=== PATIENT | male | born 1935 | race Hispanic/Latino ===

== ENCOUNTER → 2017-12-14 | Day surgery (SDC) | payer MEDICARE, OTHER ==
[2017-12-12 08:44] LABS: BASOPHILS % 0.3 % (0.0-1.0); EOSINOPHILS # (AUTO) 0.1 (0.0-0.4); EOSINOPHILS % 0.8 % (0.0-6.0); HEMATOCRIT 31.6 % (38.2-49.6); HEMOGLOBIN 10.2 g/dL (14.0-18.0); LYMPHOCYTES # (AUTO) 2.9 (1.0-3.2); LYMPHOCYTES % 46.7 % (18.0-39.1); MEAN CORPUSCULAR HEMOGLOBIN 35.7 pg (28-32); MEAN CORPUSCULAR HGB CONC 32.3 g/dL (31-35); MEAN CORPUSCULAR VOLUME 110.5 fL (81-99); MONOCYTES # (AUTO) 0.6 (0.2-0.8); MONOCYTES % 9.4 % (4.4-11.3); NEUTROPHILS # (AUTO) 2.6 (2.1-6.9); NEUTROPHILS % 42.6 % (38.7-80.0); PLATELET COUNT 147 x10e3/uL (140-360); RED BLOOD COUNT 2.86 x10e6/uL (4.3-5.7); RED CELL DISTRIBUTION WIDTH 14.7 % (11.7-14.4)
--- NOTE | 2017-12-12 09:07 | Diagnostic Imaging Report ---
PROCEDURE: X-RAY CHEST, TWO VIEWS COMPARISON: None. INDICATIONS: PREOPERATIVE CHEST XRAY FOR KIDNEY STONE SURGERY FINDINGS: Lungs are well-inflated. No focal consolidation, pleural effusion, or pneumothorax. Left apical fibrocalcific scar. Diffuse mild prominence of the pulmonary interstitium. Convexity of the left paraspinal region of the mediastinum likely reflects a hiatal hernia. Otherwise normal cardiomediastinal contour with tortuosity of the thoracic aorta. No acute osseous abnormality. CONCLUSION: No acute cardiopulmonary abnormality. 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 Dictated by: Jan Rosas M.D. on 12/12/2017 at 9:07 Electronically approved by: Jan Rosas M.D. on 12/12/2017 at 9:07
[2017-12-12 09:11] LABS: ANION GAP 14.8 mmol/L (8-16); CREATININE, SERUM 2.02 mg/dL (0.72-1.25); POTASSIUM 5.8 mmol/L (3.5-5.1)
[~2017-12-14] MED LIST: BELLADONNA/OPIUM 60 MG SUPP PR ONE; CEFTRIAXONE SOD 1 GM VIAL ONE; DEXAMETHASONE SOD PHOS INJ 4 MG/ML VIAL ONE; EPHEDRINE SULFATE INJ 50 MG/10 ML SYR ONE; FENOFIBRATE145 MG PO; FENTANYL CITRATE/PF 100MCG/2 ML INJ ONE; FUROSEMIDE40 MG PO; GLIPIZIDE5 MG PO; IOPAMIDOL 610MG/1ML 300 MG/ML VIAL IV ONE; ISOFLURANE INHAL SOLN 250 ML BTL INH ONE; LEVOTHYROXINE50 MCG PO; LIDOCAINE HCL 2% LOCAL INJ 5 ML SDV VIAL INJ ONE; LISINOPRIL10 MG PO; METFORMIN HCL500 MG PO; ONDANSETRON HCL INJ 2 MG/ML VIAL ONE; POTASSIUM CHLO10 ME1 PO; PRAVASTATIN SOD40 MG PO; PROPOFOL IV EMULSION 10 MG/ML 20 ML VIAL ONE; RENAGEL800 MG PO; SODIUM BICARBO650 MG PO; SODIUM POL15 GM/60 M; TAMSULOSIN HCL0.4 MG
--- OUTSIDE RECORDS SUMMARY | 2017-12-14 08:15 | XMS REPORT ---
Author [facility] Address Unknown Phone Unavailable Care Team Providers Care Finish Mender Name Role Phone GADIEL HAN Unavailable Unavailable Problems This patient has no known problems. Allergies, Adverse Reactions, Alerts This patient has no known allergies or adverse reactions. Medications This patient has no known medications. Results Test Description Test Time Test Comments Text Results Atomic Results Result Comments CHEST 2 VIEWS [place] [address] Patient Name: PAPA CORTEZ MR #: [id number] : 1935 Age/Sex: 82/M Req #: [id number] Adm Physician: Ordered by: GADIEL HAN MD Report #: [id number] Location: OR Room/Bed: Procedure: [id number] DX/ CHEST 2 VIEWS Exam Date: 12/12/17 Exam Time: 0850 REPORT STATUS: Signed PROCEDURE: X-RAY CHEST, TWO VIEWS COMPARISON: None. INDICATIONS: PREOPERATIVE CHEST XRAY FOR KIDNEY STONE SURGERY FINDINGS: Lungs are well-inflated. No focal consolidation, pleural effusion, or pneumothorax. Left apical fibrocalcific scar. Diffuse mild prominence of the pulmonary interstitium. Convexity of the left paraspinal region of the mediastinum likely reflects a hiatal hernia. Otherwise normal cardiomediastinal contour with tortuosity of the thoracic aorta. No acute osseous abnormality. CONCLUSION: No acute cardiopulmonary abnormality. 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 Dictated by: Anirudh Wright M.D. on 12/12/2017 at 9:07 Electronically approved by: Anirudh Wright M.D. on 12/12/2017 at 9:07 Dictated By: ANIRUDH WRIGHT MD 6 Transcribed By: JACKELINE on 12/12/17906 COPY TO: GADIEL HAN MD
--- NOTE | 2018-02-17 10:09 | Operative Report ---
DATE OF PROCEDURE: December 14, 2017 PREOPERATIVE DIAGNOSES 1. Bladder stone. 2. Obstructive BPH. POSTOPERATIVE DIAGNOSES 1. Bladder stone. 2. Obstructive BPH. OPERATIONS PERFORMED 1. Cystourethroscopy with bilateral ureteral catheterization and retrograde ureteropyelography. 2. Interpretation retrograde pyelography. 3. Supervision of fluoroscopy. No radiologist present. ANESTHESIA: General. COMPLICATIONS: None. CLINICAL SUMMARY: Konrad Tran is an 82-year-old man who is known to have a bladder stone by CT. The patient is brought to the OR to manage his stone. He has got obstructing BPH as well. He is aware of the risks of bleeding, infection, injury to adjacent structures, need for additional procedures, and elected to proceed. OPERATIVE PROCEDURE IN DETAIL: He was taken to the operating room and was placed on the cystoscopy table in the supine position. Anesthesia was uneventfully begun. The patient was then carefully and gently repositioned in the dorsal lithotomy position with all pressure points well-padded. His genitalia were prepared and draped in the usual sterile fashion. A 22.5-Gibraltarian cystoscope sheath with visual obturator in place was atraumatically inserted in the patient's urethra. It was guided down an unremarkable the urethra past a normal sphincteric region through the prostate bed, which was significant for visual obstructing bilobar BPH with kissing lateral lobes. Panendoscopy of the urinary bladder revealed heavy trabeculations with some cellular formations. There were no suspicious lesions and there were no stones. We performed careful panendoscopy on 3 occasions, and we could not find any sign of any stone. With the , retrograde ureteropyelograms were performed. Interpretation of retrograde ureteropyelography. Contrast was instilled in a retrograde fashion bilaterally. There were no tumors. No stones and 1 diverticulum. Unobstructed drainage was observed bilaterally fluoroscopically. The patient's bladder was then drained. The cystoscope was withdrawn. The patient was uneventfully reversed from anesthesia and taken to the recovery room in stable condition. Explicit postoperative instructions were given. Will follow the patient up in the office. Job#: [id number] RI cc:EMMA LEWIS
== END | disposition home or self-care (01) ==
LOC: OR 08:13
PROVIDERS: ATTEND Urology
DX: N21.0 Calculus in bladder (principal); N40.1 Benign prostatic hyperplasia with lower urinary tract symptoms; R35.1 Nocturia; N32.89 Other specified disorders of bladder; N47.6 Balanoposthitis; I10 Essential (primary) hypertension; I45.10 Unspecified right bundle-branch block; E11.9 Type 2 diabetes mellitus without complications; R60.0 Localized edema; Z01.810 Encounter for preprocedural cardiovascular examination; Z01.812 Encounter for preprocedural laboratory examination; Z01.818 Encounter for other preprocedural examination; Z87.891 Personal history of nicotine dependence
CPT/HCPCS: 36415 ×2; 52005; 71046; 74420; 80048; 82948; 84132; 85025; 93005; C1758; J0696; J1100; J2001; J2405; Q9967

== ENCOUNTER → 2018-01-16 | Day surgery (SDC) | payer MEDICARE ==
[2018-01-14 11:04] LABS: BASOPHILS % 0.6 % (0.0-1.0); EOSINOPHILS # (AUTO) 0.1 (0.0-0.4); EOSINOPHILS % 1.3 % (0.0-6.0); HEMATOCRIT 23.9 % (38.2-49.6); HEMOGLOBIN 8.3 g/dL (14.0-18.0); LYMPHOCYTES % 31.9 % (18.0-39.1); MEAN CORPUSCULAR HEMOGLOBIN 35.9 pg (28-32); MEAN CORPUSCULAR HGB CONC 34.7 g/dL (31-35); MEAN CORPUSCULAR VOLUME 103.5 fL (81-99); MONOCYTES # (AUTO) 0.8 (0.2-0.8); MONOCYTES % 12.7 % (4.4-11.3); NEUTROPHILS # (AUTO) 3.3 (2.1-6.9); NEUTROPHILS % 53.3 % (38.7-80.0); PLATELET COUNT 128 x10e3/uL (140-360); RED BLOOD COUNT 2.31 x10e6/uL (4.3-5.7); RED CELL DISTRIBUTION WIDTH 12.8 % (11.7-14.4)
[2018-01-14 11:15] LABS: INR 1.72; PROTHROMBIN TIME 18.9 seconds (11.9-14.5)
[2018-01-14 11:16] LABS: PARTIAL THROMBOPLASTIN TIME 39.4 seconds (23.8-35.5)
[2018-01-14 11:22] LABS: ALBUMIN 2.4 g/dL (3.5-5.0); ALBUMIN/GLOBULIN RATIO 0.8 (0.8-2.0); ANION GAP 17.1 mmol/L (8-16); CALCIUM 7.8 mg/dL (8.4-10.2); CREATININE, SERUM 5.52 mg/dL (0.72-1.25); POTASSIUM 4.1 mmol/L (3.5-5.1)
--- NOTE | 2018-01-14 12:01 | Diagnostic Imaging Report ---
PROCEDURE: Frontal and lateral views of the chest. COMPARISON: Chest 2 views 12/12/2017. INDICATIONS: PREOPERATIVE CHEST XRAY FOR LEFT ARM SURGERY FINDINGS: Lines/tubes: None. Lungs: The lungs are well inflated and clear. There is no evidence of pneumonia or pulmonary edema. Stable scarring in the bilateral upper lobes. Pleura: There is no pleural effusion or pneumothorax. Heart and mediastinum: The heart and the mediastinum are normal. Bones: No acute bony abnormality. Degenerative changes of the thoracic spine. IMPRESSION: No acute radiographic abnormality. Dictated by: Gerardo Cole M.D. on 01/14/2018 at 12:02 Electronically approved by: Gerardo Cole M.D. on 01/14/2018 at 12:02
[~2018-01-16] MED LIST changes: -BELLADONNA/OPIUM 60 MG SUPP PR ONE; +CEFAZOLIN SOD 1 GM VIAL ONE; -CEFTRIAXONE SOD 1 GM VIAL ONE; -DEXAMETHASONE SOD PHOS INJ 4 MG/ML VIAL ONE; -EPHEDRINE SULFATE INJ 50 MG/10 ML SYR ONE; +HEPARIN SOD (PORCINE) 5,000 UNIT/ML VIAL ONE; -IOPAMIDOL 610MG/1ML 300 MG/ML VIAL IV ONE; -ISOFLURANE INHAL SOLN 250 ML BTL INH ONE; +LIDOCAINE 2% /EPINEPHRINE 20 ML SDV INJ ONE; +LIDOCAINE HCL 1% LOCAL INJ 20 ML VIAL ONE; -LIDOCAINE HCL 2% LOCAL INJ 5 ML SDV VIAL INJ ONE; +MIDAZOLAM HCL 2 MG/2 ML VIAL ONE; -ONDANSETRON HCL INJ 2 MG/ML VIAL ONE; -PROPOFOL IV EMULSION 10 MG/ML 20 ML VIAL ONE; +PROTAMINE SULFATE 10 MG/ML 5 ML VIAL ONE; +ROPIVACAINE 0.5% 5 MG/ML 30 ML SDV ONE; +SODIUM CHLORIDE 0.9% 100 ML 100 ML ONE; +SODIUM CHLORIDE 0.9% 500ML 500 ML ONE
--- OUTSIDE RECORDS SUMMARY | 2018-01-16 10:24 | XMS REPORT | Clinical Summary ---
Author Author [facility] Organization [facility] Address Unknown Phone Unavailable Care Team Providers Care Automotive Quality Manager Name Role Phone Diallo Brown MD PCP Allergies No Known Allergies Current Medications Prescription Sig. Disp. Refills Start End Date Status Date fenofibrate (LOFIBRA) 160 Take 160 mg by mouth Active MG tablet daily. levothyroxine (SYNTHROID, Take 50 mcg by mouth Active LEVOXYL) 50 mcg tablet every morning. pravastatin (PRAVACHOL) Take 40 mg by mouth every Active 40 MG tablet morning. tamsulosin (FLOMAX) 0.4 Take 0.4 mg by mouth Active mg capsule,extended every evening. release 24hr sevelamer (RENVELA) 800 Take 1 tablet (800 mg 90 tablet 0 01/05/20 02/04/20 Active mg tablet total) by mouth 3 (three) 18 18 times a day with meals for 30 days. furosemide (LASIX) 20 mg Take 1 tablet (20 mg 60 tablet 0 01/05/20 02/04/20 Active tablet total) by mouth 2 (two) 18 18 times a day for 30 days. sodium polystyrene Take 15 gm daily 450 g 0 01/05/20 Active (KAYEXALATE) powder 18 sodium bicarbonate 650 mg Take 2 tablets (1,300 mg 120 tablet 0 02/04/20 Active tablet total) by mouth 2 (two) 18 18 times a day for 30 days. furosemide (LASIX) 40 mg 11/29/19 12/29/19 Discontin tablet 18 18 ued tamsulosin (FLOMAX) 0.4 12/20/19 12/29/19 Discontin mg capsule,extended 18 18 ued release 24hr glipiZIDE (GLUCOTROL) 2.5 12/24/19 12/29/19 Discontin MG 24 hr tablet 18 18 ued metFORMIN (GLUCOPHAGE) 11/07/19 12/29/19 Discontin 1,000 mg tablet 18 18 ued fenofibrate (LOFIBRA) 160 12/20/19 12/29/19 Discontin MG tablet 18 18 ued spironolactone 12/25/19 12/29/19 Discontin (ALDACTONE) 50 MG tablet 18 18 ued levothyroxine (SYNTHROID, Take 50 mcg by mouth 12/29/19 Discontin LEVOXYL) 50 mcg tablet every morning. 18 ued pravastatin (PRAVACHOL) Take 40 mg by mouth 12/29/19 Discontin 40 MG tablet daily. 18 ued lisinopril Take 20 mg by mouth 12/29/19 Discontin (PRINIVIL,ZESTRIL) 20 mg daily. 18 ued tablet aspirin (ECOTRIN) 81 MG Take 81 mg by mouth 12/29/19 Discontin enteric coated tablet daily. 18 ued potassium chloride 11/29/19 12/29/19 Discontin (KLOR-CON) 10 MEQ CR 18 18 ued tablet PHENAZOPYRIDINE HCL (AZO Take by mouth. 12/29/19 Discontin ORAL) 18 ued XIFAXAN 550 mg tablet 12/28/19 12/29/19 Discontin 18 18 ued furosemide (LASIX) 40 mg Take 40 mg by mouth 01/09/20 Discontin tablet daily. 18 ued glipiZIDE (GLUCOTROL) 2.5 Take 2.5 mg by mouth 01/05/20 Discontin MG 24 hr tablet daily. 18 ued lisinopril Take 20 mg by mouth 01/05/20 Discontin (PRINIVIL,ZESTRIL) 20 mg daily. 18 ued tablet metFORMIN (GLUCOPHAGE) Take 1,000 mg by mouth 2 01/05/20 Discontin 1,000 mg tablet (two) times a day. 18 ued spironolactone Take 50 mg by mouth 01/05/20 Discontin (ALDACTONE) 50 MG tablet daily. 18 ued sodium bicarbonate 650 mg Take 2 tablets (1,300 mg 60 tablet 0 01/05/20 Discontin tablet total) by mouth 2 (two) 18 18 ued times a day for 30 days. ciprofloxacin HCl (CIPRO) Take 1 tablet (250 mg 14 tablet 0 01/05/20 01/12/20 250 MG tablet total) by mouth 2 (two) 18 18 times a day for 7 days. Active Problems Problem Noted Date Hyperkalemia 12/28/2017 Encounters Date Type Specialty Care Team Description 01/04/2018 Patient Quality Ainsley Ruffin Outreach 01/01/2018 [facility] Radiology Jimmy Hanks MD Canceled ( Patient) Encounter 12/31/2017 Telephone Gastroenterology Jimmy Hanks MD 12/28/2017 [facility] General Internal Medicine Fátima Callahan MD SHERRELL (acute kidney injury) - Encounter Amy Garcia MD (Primary Dx); 01/04/2018 Acute hyperkalemia; Hypoglycemia; Dehydration; Edema, unspecified type; Hyperkalemia 12/28/2017 Telephone Gastroenterology Moira Correia MA 12/27/2017 Office Visit Gastroenterology Jimmy Hanks MD Abnormal LFTs (Primary Dx); Other ascites 12/27/2017 Orders Only Gastroenterology Jimmy Hanks MD after 01/15/2017 Social History Tobacco Use Types Packs/Day Years Used Date Never Smoker Smokeless Tobacco: Never Used Alcohol Use Drinks/Week oz/Week Comments No Sex Assigned at Date Recorded Not on file Last Filed Vital Signs Vital Sign Reading Time Taken Blood Pressure 119/59 01/04/2018 12:31 PM CUSTODY ASSISTANT Pulse 83 01/04/2018 12:31 PM CUSTODY ASSISTANT Temperature 36.2 C (97.1 F) 01/04/2018 12:31 PM CUSTODY ASSISTANT Respiratory Rate 20 01/04/2018 12:31 PM CUSTODY ASSISTANT Oxygen Saturation 99% 01/04/2018 12:31 PM CUSTODY ASSISTANT Inhaled Oxygen - - Concentration Weight 81.8 kg (180 lb 4.8 oz) 01/04/2018 4:03 AM CUSTODY ASSISTANT Height 167.6 cm (5' 6") 12/31/2017 6:43 PM CUSTODY ASSISTANT Body Mass Index 29.1 01/04/2018 4:03 AM CUSTODY ASSISTANT Plan of Treatment Health Maintenance Due Date Last Done Comments ZOSTER VACCINE 1997 PNEUMOCOCCAL 2002 POLYSACCHARIDE VACCINE AGE 65 AND OVER PNEUMOCOCCAL-13 2002 INFLUENZA VACCINE 05/29/2017 Procedures Procedure Name Priority Date/Time Associated Diagnosis Comments ECHOCARDIOGRAM 2D Routine 12/29/2017 Results for this COMPLETE W MMODE SPECTRAL 9:29 AM CUSTODY ASSISTANT procedure are in the COLOR DOPPLER (89779) results section. [place] [facility], E/M Routine 12/28/2017 Results for this 30-74 MINUTES 4:23 PM CUSTODY ASSISTANT procedure are in the results section. after 01/15/2017 Results * POC glucose (01/04/2018 12:26 PM) Only the most recent of 35 results within the time period is included. Component Value Ref Range POC glucose 142 (H) 65 - 99 mg/dL Comment: [facility] Notified RN Meter ID: [id number] Model Engine Mechanic: Joe Lisa Specimen Performing Laboratory [facility] DEPARTMENT OF PATHOLOGY AND GENOMIC MEDICINE [address] [place] [id number] * Prothrombin time with INR (01/04/2018 7:56 AM) Only the most recent of 7 results within the time period is included. Component Value Ref Range Prothrombin time 20.5 (H) 12.0 - 15.0 sec INR 1.7 Comment: The International Normalized Ratio (INR) is a therapeutic monitoring tool for patients who are stable on oral anticoagulant therapy. An INR of 2.0-3.0 is suggested for deep vein thrombosis/pulmonary embolism. Specimen Performing Laboratory Blood [facility] DEPARTMENT OF PATHOLOGY AND GENOMIC MEDICINE [address] [place] [id number] * CBC with platelet and differential (01/04/2018 7:56 AM) Only the most recent of 8 results within the time period is included. Component Value Ref Range WBC 5.16 4.50 - 11.00 k/uL RBC 2.62 (L) 4.40 - 6.00 m/uL HGB 9.2 (L) 14.0 - 18.0 g/dL HCT 27.9 (L) 41.0 - 51.0 % MCV 106.5 (H) 82.0 - 100.0 fL MCH 35.1 (H) 27.0 - 34.0 pg MCHC 33.0 31.0 - 37.0 g/dL RDW - SD 54.0 37.0 - 55.0 fL MPV 11.9 8.8 - 13.2 fL Platelet count 142 (L) 150 - 400 k/uL Nucleated RBC 0.00 /100 WBC Neutrophils 47.9 39.0 - 69.0 % Lymphocytes 36.8 25.0 - 45.0 % Monocytes 12.6 (H) 0.0 - 10.0 % Eosinophils 1.9 0.0 - 5.0 % Basophils 0.6 0.0 - 1.0 % Immature granulocytes 0.2Comment: "Immature granulocytes" 0.0 - 1.0 % (promyelocytes, myelocytes, metamyelocytes) Specimen Performing Laboratory Blood [facility] DEPARTMENT OF PATHOLOGY AND [facility] MEDICINE [address] [place] [address] * B natriuretic peptide (01/04/2018 7:56 AM) Only the most recent of 2 results within the time period is included. Component Value Ref Range BNP 287 (H) 0 - 100 pg/mL Specimen Performing Laboratory Blood [facility] DEPARTMENT OF PATHOLOGY AND [address] [address] * Estimated GFR (01/04/2018 4:00 AM) Only the most recent of 10 results within the time period is included. Component Value Ref Range GFR Non Af Amer 10 (A) mL/min/1.73 m2 GFR Af Amer 12 (A) mL/min/1.73 m2 Comment: Chronic kidney disease: <60 mL/min/1.73m2 Kidney failure: <15 mL/min/1.73m2 The estimated GFR is calculated from the IDMS-traceable Modification of Diet in Renal Disease Equation. The accuracy of the calculation is poor when the creatinine is normal. Calculated values >90 mL/min/1.73m2 are not reported. This equation has not been validated in children (<18 years), women, the elderly (>70 years), or ethnic groups other than Caucasians and Americans. Specimen Performing Laboratory Plasma specimen [facility] DEPARTMENT OF PATHOLOGY AND [address] [address] * Comprehensive metabolic panel (01/04/2018 4:00 AM) Only the most recent of 8 results within the time period is included. Component Value Ref Range Sodium 134 (L) 135 - 148 mEq/L Potassium 4.2 3.5 - 5.0 mEq/L Chloride 99 98 - 112 mEq/L CO2 17 (L) 24 - 31 mEq/L Anion gap 18 (H) 7 - 15 mEq/L Comment: Starting from January , anion gap calculation no longer incorporates potassium. Please note the change. BUN 58 (H) 8 - 23 mg/dL Creatinine 5.7 (H) 0.7 - 1.2 mg/dL Glucose 94 65 - 99 mg/dL Calcium 8.1 (L) 8.8 - 10.2 mg/dL Protein 5.8 (L) 6.3 - 8.3 g/dL Comment: 4.6-7.0 g/dL 1 week 4.4-7.6 g/dL 7 months-1year 5.1-7.3 g/dL 1-2 years 5.6-7.5 g/dL >3 years 6.0-8.0 g/dL 18-150 6.3-8.3 g/dL Albumin 2.4 (L) 3.5 - 5.0 g/dL A/G ratio 0.7 0.7 - 3.8 Alkaline phosphatase 87 40 - 129 U/L AST 88 (H) 10 - 50 U/L ALT 44 5 - 50 U/L Total bilirubin 1.1 0.0 - 1.2 mg/dL Specimen Performing Laboratory Plasma specimen [facility] DEPARTMENT OF PATHOLOGY AND GENOMIC MEDICINE [address] [place] [address] * Magnesium level (01/03/2018 4:49 AM) Only the most recent of 4 results within the time period is included. Component Value Ref Range Magnesium 2.5 (H) 1.6 - 2.4 mg/dL Specimen Performing Laboratory Plasma specimen [facility] DEPARTMENT OF PATHOLOGY AND GENOMIC MEDICINE [address] [place] [address] * Pv vein mapping upper extremity (01/02/2018 10:07 AM) Specimen Performing Laboratory [facility] [address] [place] [address] Narrative Vascular Ultrasound Laboratory Upper Extremity Vein Mapping Report [address] [place] [address] Pat.Name:KONRAD CORTEZ Pat.ID:[id number] .Date: 01/02/2018Refer.MD:AMY GARCIA MD Exam Time: 9:44:00 AMStudy Type:UE Vein Mapping DOBAge:1935,82YSex: MALE Sonogrphr: Stephenie Cruz RDCS, RVT Pat. Stat.:Inpatient Room:[address] TapeVol: ED, CPT - 4: G0365 Echo Event ID:[id number] Order ID:[id number] Reason for Study:Venous mapping for dialysis access History / Clinical:Cirrhosis, Portal HTN, SHERRELL, Gastric mass, DM, HTN, HLD Race:C SUMMARY: DUPLEX SCAN OBSERVATIONSUPPER ARTERY PRESSURES (mmHg) Right LeftRight Left IJNormal Normal Brachial____ ____ SubclavianNormal NormalRadial____ ____ AxillaryNormal NormalUlnar____ ____ BrachialNormal Normal BasilicNormal Normal Cephalic upper arm Normal Obstructed Cephalic forearm Normal Normal RIGHT:There is normal compressibility and no evidence of echogenic material noted within the lumen of the visualized veins. Colorflow and Doppler signals are normal. LEFT:The cephalic vein (upper arm and antecubital fossa portions) is non-compressible, and dilated with echogenic material noted within the lumen of the visualized vein. Colorflow and Doppler signals are absent. The remaining visualized veins are patent. PRELIMINARY FINDINGS 1. 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 2. See diagram for superficial vein measurements. 3. The palmar arch is complete; however, the amplitude is reduced uponrelease of the left radial artery during Connor'stest. PHYSICIAN INTERPRETATION Venous examination of the both upper extremities and neck demonstrated superficial venous thrombosis of the left cephalic vein (upper arm and antecubital fossa portions). See diagram for superficial vein measurements. The palmar arch is complete; butdecreased amplitude in the left radial artery during Connor test.(waveforms attached) Signed 01/02/2018 12:18 PM Marbin Castillo MD, RPVI Procedure Note Interface, Radiology Results In - 01/02/2018 12:19 PM [facility] Vascular Ultrasound Laboratory Upper Extremity Vein Mapping Report [id number] [address] [facility].Name: KONRAD CORTEZ.ID: [id number] .Date: 01/02/2018 Refer.MD: AMY GARCIA MD Exam Time: 9:44:00 AM Study Type:UE Vein Mapping Age: 7 1935,82Y Sex: MALE Sonogrphr: Stephenie Cruz, RDCS, RVT Pat. Stat.:Inpatient Room: [facility] A Tape Vol: ED, CPT - 4: G0365 Echo Event ID:[id number] Order ID: [id number] Reason for Study:Venous mapping for dialysis access History / Clinical:Cirrhosis, Portal HTN, SHERRELL, Gastric mass, DM, HTN, HLD Race: C SUMMARY: DUPLEX SCAN OBSERVATIONS UPPER ARTERY PRESSURES (mmHg) Right Left Right Left IJ Normal Normal Brachial ____ ____ Subclavian Normal Normal Radial ____ ____ Axillary Normal Normal Ulnar ____ ____ Brachial Normal Normal Basilic Normal Normal Cephalic upper arm Normal Obstructed Cephalic forearm Normal Normal RIGHT: There is normal compressibility and no evidence of echogenic material noted within the lumen of the visualized veins. Colorflow and Doppler signals are normal. LEFT: The cephalic vein (upper arm and antecubital fossa portions) is non-compressible, and dilated with echogenic material noted within the lumen of the visualized vein. Colorflow and Doppler signals are absent. The remaining visualized veins are patent. PRELIMINARY FINDINGS 1. 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 2. See diagram for superficial vein measurements. 3. The palmar arch is complete; however, the amplitude is reduced upon release of the left radial artery during Connor's test. PHYSICIAN INTERPRETATION Venous examination of the both upper extremities and neck demonstrated superficial venous thrombosis of the left cephalic vein (upper arm and antecubital fossa portions). See diagram for superficial vein measurements. The palmar arch is complete; but decreased amplitude in the left radial artery during Connor test.(waveforms attached) Signed 01/02/2018 12:18 PM Marbin Castillo MD, RPVI * Urine culture (01/01/2018 10:46 PM) Only the most recent of 2 results within the time period is included. Component Value Ref Range Urine culture SEE COMMENTComment: Bacteriuria screen negative. Specimen Performing Laboratory [facility] DEPARTMENT OF PATHOLOGY AND GENOMIC MEDICINE [address] [place] [address] * Urinalysis screen and microscopy, with reflex to culture (01/01/2018 10:20 PM) Only the most recent of 2 results within the time period is included. Component Value Ref Range Specimen site Catheterized Color, UA Straw Appearance, UA Clear Specific gravity, UA 1.005 1.001 - 1.035 pH, UA 5.0 5.0 - 8.5 Protein, UA Negative Negative Glucose, UA Negative Negative Ketones, UA Negative Negative Bilirubin, UA Negative Negative Blood, UA Moderate (A) Negative Nitrite, UA Negative Negative Urobilinogen, UA <2.0 <2.0 Leukocyte esterase, UA Negative Negative WBC, UA 1 0 - 1 /HPF RBC, UA 1 0 - 1 /HPF Bacteria, UA None seen None seen Yeast, UA None seen Yeast with pseudohyphae, None seen UA Specimen Performing Laboratory Urine [facility] DEPARTMENT OF PATHOLOGY AND GENOMIC MEDICINE [address] [place] [address] * US Abdominal Paracentesis Imaging (01/01/2018 12:30 PM) Specimen Performing Laboratory [facility] [address] [place] [address] Narrative EXAMINATION:US ABDOMINAL PARACENTESIS IMAGING CLINICAL HISTORY:Ascites COMPARISON:None. TECHNIQUE: The procedure's risks, benefits, and alternatives were discussed with the patient and written, informed consent was obtained. Using ultrasound guidance, a site for needle entry was selected and the overlying skin was prepped and draped in the usual sterile fashion. 1% buffered lidocaine was used for local anesthesia. A 5 Romanian Yueh catheter was inserted into the peritoneal cavity and 1.5 L of fluid drained from the right abdomen for therapeutic and diagnostic purposes.The patient tolerated the procedure without difficulty and was discharged to the radiology recovery area for monitoring prior to discharge. EBL: None. COMPLICATIONS: None. SPECIMENS: As above. ASSISTANTS: None. IMPRESSION: Uncomplicated ultrasound-guided paracentesis as above. [facility]-[id number] [address] [facility], Radiology Results Incoming - 01/01/2018 4:27 PM CUSTODY ASSISTANT EXAMINATION: US ABDOMINAL PARACENTESIS IMAGING CLINICAL HISTORY:Ascites COMPARISON:None. TECHNIQUE: The procedure's risks, benefits, and alternatives were discussed with the patient and written, informed consent was obtained. Using ultrasound guidance, a site for needle entry was selected and the overlying skin was prepped and draped in the usual sterile fashion. 1% buffered lidocaine was used for local anesthesia. A 5 Romanian Yueh catheter was inserted into the peritoneal cavity and 1.5 L of fluid drained from the right abdomen for therapeutic and diagnostic purposes. The patient tolerated the procedure without difficulty and was discharged to the radiology recovery area for monitoring prior to discharge. EBL: None. COMPLICATIONS: None. SPECIMENS: As above. ASSISTANTS: None. IMPRESSION: Uncomplicated ultrasound-guided paracentesis as above. [facility]-[id number] * Aerobic culture (01/01/2018 12:14 PM) Component Value Ref Range Aerobic culture isolate No growth after 3 days. Comment: Specimen Information Specimen Source: Peritoneal fluid Specimen Site: Ascites Specimen Performing Laboratory Peritoneal fluid - [facility] DEPARTMENT OF PATHOLOGY AND GENOMIC MEDICINE [facility] [address] [place] [address] * Gram stain (01/01/2018 12:14 PM) Only the most recent of 2 results within the time period is included. Component Value Ref Range Gram stain isolate Many WBC's No organisms seen Comment: Specimen Information Specimen Source: Peritoneal fluid Specimen Site: Ascites Specimen Performing Laboratory Peritoneal fluid - [facility] DEPARTMENT OF PATHOLOGY AND GENOMIC MEDICINE [facility] [address] [place] [address] * Anaerobic culture (01/01/2018 12:14 PM) Component Value Ref Range Anaerobic culture isolate No anaerobic organisms isolated. Comment: Specimen Information Specimen Source: Peritoneal fluid Specimen Site: Ascites Specimen Performing Laboratory Peritoneal fluid - [facility] DEPARTMENT OF PATHOLOGY AND GENOMIC MEDICINE [facility] [address] [place] [address] * Cell count and differential, body fluid (01/01/2018 12:14 PM) Component Value Ref Range Misc fluid type Ascitic Color, fluid Pale yellow Appearance, fluid Hazy RBC, fluid SEE COMMENTComment: 1+ (0 - 500 RBC/CMM) /CMM Nucleated cells, fluid 361 /CMM Fluid mononuclear cell See Diff Neutrophils, fluid 7 % Lymphocytes, fluid 25 % Mesothelial cells, fluid 7 % Macrophages, fluid 61 % Specimen Performing Laboratory Fluid [facility] DEPARTMENT OF PATHOLOGY AND GENOMIC MEDICINE [address] [place] [address] * Protein, misc fluid (01/01/2018 12:14 PM) Component Value Ref Range Fluid type Ascitic Protein, fluid 1.9 g/dL Comment: Analysis performed on Jennifer 8000 analyzer. This is not an approved methodology for this specimen type; accuracy and clinical significance uncertain. Specimen Performing Laboratory Fluid [facility] DEPARTMENT [place] [address] * Cytology (non-gynecological) request (01/01/2018 12:00 PM) Component Value Ref Range Cytology See link below for PDF Lab Report (non-gynecological) report Result status This is Final Report to [id number] Specimen Performing Laboratory [facility] DEPARTMENT OF PATHOLOGY AND [facility] MEDICINE [address] [place] [address] * Anti smooth muscle Ab screen (01/01/2018 4:53 AM) Component Value Ref Range Anti smooth muscle Ab Not Detected Not-Detected screen Specimen Performing Laboratory Blood [facility] [place] [address] Narrative _CO2 results called to and read back by EHSAN HOLLEY/MOHAN at01/01/201807:07by _GMV. * Liver-kidney microsome Ab, IgG (01/01/2018 4:53 AM) Component Value Ref Range Liver-kidney microsome <1:20 <1:20 Ab, IgG Comment: INTERPRETIVE INFORMATION: Kabrb-Yyaklz-Xdosjshrs Abs, IgG Liver-Kidney Microsome IgG antibody (anti-LKM), as detected by indirect immunofluorescent antibody (IFA) techniques, may be observed in patients with autoimmune hepatitis type 2 (AIH-2), AIH-2 associated with autoimmune bxifgsugjsadvnrkkr-tttodocwxdf-tdyhurikzu dystrophy (APECED), viral hepatitis C or D, and some forms of drug-induced hepatitis. This IFA does not differentiate among the four types of LKM antibodies (LKM-1, LKM-2, LKM-3, and a fourth type that recognizes CY and CY antigens). Of these, anti-LKM-1 (cytochrome [id number]) IgG antibodies are considered specific for AIH-2. Test developed and characteristics determined by [employer]. See Compliance Statement D: [employer] Performed by [employer], [address] [place] [id number] [email or web address] Jez Chaudhry MD - Lab. Director Specimen Performing Laboratory Serum [facility] [address] [address] Narrative _CO2 results called to and read back by EHSAN LY at01/01/201807:07by _GMV. * Anti mitochondria screen (01/01/2018 4:53 AM) Component Value Ref Range Anti mitochondria screen Not Detected Not-Detected Specimen Performing Laboratory Blood [facility] DEPARTMENT OF PATHOLOGY AND [facility] MEDICINE [address] [place] [address] Narrative _CO2 results called to and read back by EHSAN LY at01/01/201807:07by _GMV. * Ceruloplasmin level (01/01/2018 4:53 AM) Component Value Ref Range Ceruloplasmin 20 15 - 30 mg/dL Specimen Performing Laboratory Plasma specimen [facility] DEPARTMENT OF PATHOLOGY [facility] GENOMIC MEDICINE [address] [place] [address] * Alpha fetoprotein (01/01/2018 4:53 AM) Component Value Ref Range Alpha fetoprotein 2.7 0.0 - 8.3 ng/mL Comment: The Jnenifer 8000 AFP immunoassay was used. Results obtained with different assay methods or kits should not be used interchangeably and may be different. Specimen Performing Laboratory Serum [facility] DEPARTMENT OF PATHOLOGY [facility] GENOMIC MEDICINE [address] [place] [address] * RAMU (01/01/2018 4:53 AM) Component Value Ref Range RAMU screen Negative Negative Specimen Performing Laboratory Blood [facility] [place] [address] Narrative _CO2 results called to and read back by EHSAN LY at01/01/201807:07by _GMV. * Blood culture, aerobic & anaerobic (12/31/2017 6:53 PM) Only the most recent of 2 results within the time period is included. Component Value Ref Range Blood culture isolate No growth after 5 days of incubation. Comment: Specimen Information Specimen Source: Blood Specimen Site: Antecubital Specimen Performing Laboratory Blood - Antecubital [facility] OF PATHOLOGY [facility] [address] [place] [address] * Salmonella/shigella culture (12/31/2017 3:30 PM) Component Value Ref Range Salmonella/shigella No Aeromonas isolated culture isolate Comment: Specimen Information Specimen Source: Stool Specimen Site: Nonpreserved Specimen Performing Laboratory Stool - Nonpreserved [facility] OF PATHOLOGY [facility] [address] [place] [address] * Gastrointestinal panel (12/31/2017 3:30 PM) Component Value Ref Range Gastrointestinal panel Negative for all pathogens tested: Negative for Salmonella Negative for Campylobacter Negative for Diarrheagenic E coli/Shigella Negative for Shiga-like toxin-producing E coli Negative for Plesiomonas shigelloides Negative for Yersinia enterocolitica Negative for Vibrio species Negative for Clostridium difficile (Toxin A/B) Negative for Cryptosporidium Negative for Giardia lamblia Negative for Cyclospora cayeteanensis Negative for Entamoeba histolytica Negative for Adenovirus F 40/41 Negative for Astrovirus Negative for Norovirus GI/GII Negative for Rotavirus A Negative for Sapovirus Negative for Clostridium difficile toxin Negative for E coli 0157 This real-time PCR assay detects the presence of nucleic acids (RNA or DNA) for the gastrointestinal pathogens listed. A result of "Not-detected" does not exclude the possibility of the presence of one or more pathogens at concentrations less than the detectable limits of the assay. Comment: Specimen Information Specimen Source: Stool Specimen Site: Nonpreserved Specimen Performing Laboratory Stool - Nonpreserved [facility] DEPARTMENT OF PATHOLOGY AND NXT-ID MEDICINE [address] [place] [address] * CBC hemogram (12/31/2017 2:50 PM) Only the most recent of 3 results within the time period is included. Component Value Ref Range WBC 6.45 4.50 - 11.00 k/uL RBC 2.71 (L) 4.40 - 6.00 m/uL HGB 9.8 (L) 14.0 - 18.0 g/dL HCT 30.1 (L) 41.0 - 51.0 % MCV 111.1 (H) 82.0 - 100.0 fL MCH 36.2 (H) 27.0 - 34.0 pg MCHC 32.6 31.0 - 37.0 g/dL RDW - SD 58.6 (H) 37.0 - 55.0 fL MPV 11.2 8.8 - 13.2 fL Platelet count 165 150 - 400 k/uL Nucleated RBC 0.00 /100 WBC Specimen Performing Laboratory [facility] DEPARTMENT OF PATHOLOGY AND GENOMIC MEDICINE [address] [place] [address] * Phosphorus level (12/31/2017 4:00 AM) Only the most recent of 3 results within the time period is included. Component Value Ref Range Phosphorus 5.3 (H) 2.4 - 4.5 mg/dL Specimen Performing Laboratory Plasma specimen [facility] DEPARTMENT PATHOLOGY AND [address] [address] * Hepatic function panel (12/31/2017 4:00 AM) Component Value Ref Range Albumin 2.0 (L) 3.5 - 5.0 g/dL Total bilirubin 1.1 0.0 - 1.2 mg/dL Bilirubin direct 0.6 (H) 0.0 - 0.3 mg/dL Alkaline phosphatase 72 40 - 129 U/L Protein 5.0 (L) 6.3 - 8.3 g/dL Comment: Eros 4.6-7.0 g/dL 1 week 4.4-7.6 g/dL 7 months-1year 5.1-7.3 g/dL 1-2 years 5.6-7.5 g/dL >3 years 6.0-8.0 g/dL 18-150 6.3-8.3 g/dL ALT 36 5 - 50 U/L AST 72 (H) 10 - 50 U/L Specimen Performing Laboratory Plasma specimen [facility] DEPARTMENT OF PATHOLOGY AND [place] [id number] * Basic metabolic panel (12/31/2017 4:00 AM) Only the most recent of 3 results within the time period is included. Component Value Ref Range Sodium 133 (L) 135 - 148 mEq/L Potassium 5.2 (H) 3.5 - 5.0 mEq/L Chloride 103 98 - 112 mEq/L CO2 15 (L) 24 - 31 mEq/L Anion gap 15 7 - 15 mEq/L Comment: Starting from January , anion gap calculation no longer incorporates potassium. Please note the change. 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 Sagittal and coronal computerized reformatted images were also obtained. The lack of intravenous contrast reduces the sensitivity of detecting solid organ disease.Automatic exposure control or iterative reconstruction techniques used to reduce dose. COMPARISON:None. Impression: 1.Without IV contrast evaluation of solid organs of upper abdomen is limited. Liver show lobulated contours compatible with cirrhosis. There is small to moderate amount of ascites throughout. Spleen is mildly enlarged at 13.3 cm in length. 2.There is a 3.4 x 2.7 x 2.9 cm mass projecting along the serosal aspect of the gastric cardia. 3.Cholelithiasis is noted. Bowel gas pattern nonobstructive. Morganii hernia containing mainly fatty material and small amount of ascites. There is also a right-sided inguinal hernia containing small amount of fluid. Summary: 1.Gastric mass at the level of gastric cardia posterior wall. GIST tumor vs other neoplasm should be considered. Endoscopy recommended. [facility]-[id number] Procedure [address] [facility], Radiology Results - 12/30/2017 9:34 AM CUSTODY ASSISTANT EXAMINATION: CT ABDOMEN PELVIS WO CONTRAST CLINICAL HISTORY: BLADDER OUTLET OBSTRUCTION RENAL INSUFFICIENCY TECHNIQUE: Multiple axial images of the abdomen and pelvis were obtained without intravenous administration of iodinated contrast. Sagittal and coronal computerized reformatted images were also obtained. The lack of intravenous contrast reduces the sensitivity of detecting solid organ disease.Automatic exposure control or iterative reconstruction techniques used to reduce dose. COMPARISON: None. Impression: 1. Without IV contrast evaluation of solid organs of upper abdomen is limited. Liver show lobulated contours compatible with cirrhosis. There is small to moderate amount of ascites throughout. Spleen is mildly enlarged at 13.3 cm in length. 2. There is a 3.4 x 2.7 x 2.9 cm mass projecting along the serosal aspect of the gastric cardia. 3. Cholelithiasis is noted. Bowel gas pattern nonobstructive. Morganii hernia containing mainly fatty material and small amount of ascites. There is also a right-sided inguinal hernia containing small amount of fluid. Summary: 1. Gastric mass at the level of gastric cardia posterior wall. GIST tumor vs other neoplasm should be considered. Endoscopy recommended. [facility]-[id number] * Prostate specific antigen (12/30/2017 4:00 AM) Component Value Ref Range PSA 2.0 0.0 - 4.0 ng/mL Comment: The JENNIFER 8000 PSA immunoassay was used. Results obtained with different assay methods or kits should not be used interchangeably and may be different. Specimen Performing Laboratory Plasma specimen [facility] DEPARTMENT OF PATHOLOGY AND [facility] MEDICINE [address] [place] [address] * Sodium level, urine, random (12/29/2017 12:00 PM) Component Value Ref Range Sodium, urine, random 37 mEq/L Specimen Performing Laboratory Urine [facility] [address] * Creatinine level, urine, random (12/29/2017 12:00 PM) Component Value Ref Range Creatinine, urine, random 136 mg/dL Specimen Performing Laboratory Urine [facility] [address] * Echocardiogram complete w contrast and 3D if needed (12/29/2017 9:29 AM) [facility]imen [facility] [address] [place] [address] Narrative Echocardiography Report [address] [place] [address] Pat.Name:KONRAD CORTEZ.ID:[id number] .Date: 12/29/2017Refer.MD:AMY GARCIA MD Exam Time: 9:01:00 AMStudy Type:Routine Echo Height:65inWeight:176lb BSA: 1.88 m2 DOBAge:1935 ,82Y Sex: MALEBP: 99/56 HR:83 bpmSonogrphr: TIMOTHY Gillis, [facility] Pat. Stat.:Inpatient Room:[facility] Study Status:Final Echo Event ID:[id number] Order ID:[id number] Reason for Study:Congestive Heart Failure Procedures:2D Echo, Colorflow Doppler, Strain Race:C SUMMARY: Findings are consistent with HFpEF. FINDINGS: LV: LV size is normal. Concentric left ventricular remodeling. LVEF is normal. Overall wall motion is normal. Estimated EFis 60-64%. RV: RV size is normal. RV systolic function is normal. RV wall motionis normal. LA: LA size is normal. RA: RA size is normal. AO: Aortic root diameter is normal. HELLEN: No pericardial effusion. AV: Mild thickening and calcification of AV leaflets. A trace of aorticregurgitation. MV: No structural MV abnormalities noted. A trace of mitral regurgitation. PV: Pulmonic valve not well seen. TV: No structural TV abnormalities noted. A trace of tricuspid regurgitation Sandhu: LV relaxation is impaired. LV filling pressure is elevated. Other:Insufficient TR jet to estimate PA systolic pressure. Ascitesnoted. MEASUREMENTS: 2D Parasternal [place] Ao An1.9 cmLVPWd 1.1 cm LVOT 1.8 cmLA Ds 2.6 cm LVIDd3.8 cmIndex 2 cm/m Ao Rtd 2.6 cm Index1.4 cm/m LVIDs2.6 cm LV Ceic062.5 g(122-174) LV%fs 30.3 % LVM Index 62 g/m2 IVSd 0.9 cmRWT 0.6 Signed 12/29/2017 05:41 PM Sheron Holloway M.D. Procedure Note Interface, Radiology Results In - 12/29/2017 5:41 PM CUSTODY ASSISTANT Echocardiography Report [address]Name: KONRAD CORTEZ.ID: [id number] .Date: 12/29/2017 Refer.MD: AMY GARCIA MD Exam Time: 9:01:00 AM Study Type:Routine Echo Height: 65in Weight: 176lb BSA: 1.88 m2 Age: 7 1935,82Y Sex: MALE BP: 99/56 HR: 83 bpm Sonogrphr: TIMOTHY Gillis, [facility] Pat. Stat.:Inpatient Room: A838 Study Status:Final Echo Event ID:[id number] Order ID: [id number] Reason for Study:Congestive Heart Failure Procedures:2D Echo, Colorflow Doppler, Strain Race: C SUMMARY: Findings are consistent with HFpEF. FINDINGS: LV: LV size is normal. Concentric left ventricular remodeling. LV EF is normal. Overall wall motion is normal. Estimated EF is 60-64%. RV: RV size is normal. RV systolic function is normal. RV wall motion is normal. LA: LA size is normal. RA: RA size is normal. AO: Aortic root diameter is normal. HELLEN: No pericardial effusion. AV: Mild thickening and calcification of AV leaflets. A trace of aortic regurgitation. MV: No structural MV abnormalities noted. A trace of mitral regurgitation. PV: Pulmonic valve not well seen. TV: No structural TV abnormalities noted. A trace of tricuspid regurgitation Sandhu: LV relaxation is impaired. LV filling pressure is elevated. Other: Insufficient TR jet to estimate PA systolic pressure. Ascites noted. MEASUREMENTS: 2D Parasternal [place] Ao An 1.9 cm LVPWd 1.1 cm LVOT 1.8 cm LA Ds 2.6 cm LVIDd 3.8 cm Index 2 cm/m Ao Rtd 2.6 cm Index 1.4 cm/m LVIDs 2.6 cm LV Mass 116.5 g (122-174) LV%fs 30.3 % LVM Index 62 g/m2 IVSd 0.9 cm RWT 0.6 Signed 12/29/2017 05:41 PM Sheron Holloway M.D. * Us duplex venous lower extremity (12/29/2017 9:01 AM) Specimen Performing Laboratory [facility] [address] Vascular Ultrasound Laboratory Lower Extremity Venous Report [address] [place] [address] Pat.Name:KONRAD CORTEZ Pat.ID:[id number] .Date: 12/29/2017Refer.MD:EMERSON CORBIN MD Exam Time: 8:28:00 AMStudy Type:LE Venous DOBAge:1935,82YSex: MALE Pat. Stat.:Inpatient Room:8 TapeVol: [facility] - 4: [address] Echo Event ID:[id number] Order ID:[id number] Reason for Study:Bilateral leg edema; HTN, diabetic and hyperlipidemia. Race:C SUMMARY: DUPLEX SCAN OBSERVATIONS Deep VeinsSuperficial Veins RightLeft RightLeft EIV GSV (prox) NormalNormal CFV Normal Normal (above knee) Femoral Normal Normal GSV (dist) Normal Normal Profunda Normal Normal (below knee) Popliteal Normal Normal PT (prox) Normal NormalSSV Normal Normal PT (dist) Normal Normal Peroneal Normal Normal RIGHT:There is normal compressibility with no evidence of echogenic material noted within the lumen of the visualized veins.Colorflow and Doppler signals are normal. LEFT: There is normal compressibility with no evidence of echogenic material noted within the lumen of the visualized veins. Colorflow and Doppler signals are normal. PRELIMINARY FINDINGS 1.Normal venous duplex exam of the visualized veins. PHYSICIAN INTERPRETATION Venous examination of the both lower extremities demonstrated no evidence of venous thrombosis in the visualized veins.Normal compressibility and augmentation of all veins visualized. Signed 12/29/2017 09:04 AM Marbin Castillo MD, RPVI Procedure Note Interface, Radiology Results In - 12/29/2017 9:05 AM [facility] Vascular Ultrasound Laboratory Lower Extremity Venous Report [address] [place] [address] Pat.Name: KONRAD CORTEZ Pat.ID: [id number] St.Date: 12/29/2017 Refer.MD: EMERSON CORBIN MD Exam Time: 8:28:00 AM Study Type:LE Venous Age: 5 1935,82Y Sex: MALE Pat. Stat.:Inpatient Room: A8 [facility] Vol: FE, CPT - 4: 35840 Echo Event ID:[id number] Order ID: [id number] Reason for Study:Bilateral leg edema; HTN, diabetic and hyperlipidemia. Race: C SUMMARY: DUPLEX SCAN OBSERVATIONS Deep Veins Superficial Veins Right Left Right Left EIV GSV (prox) Normal Normal CFV Normal Normal (above knee) Femoral Normal Normal GSV (dist) Normal Normal Profunda Normal Normal (below knee) Popliteal Normal Normal PT (prox) Normal Normal SSV Normal Normal PT (dist) Normal Normal Peroneal Normal Normal RIGHT: There is normal compressibility with no evidence of echogenic material noted within the lumen of the visualized veins. Colorflow and Doppler signals are normal. LEFT: There is normal compressibility with no evidence of echogenic material noted within the lumen of the visualized veins. Colorflow and Doppler signals are normal. PRELIMINARY FINDINGS 1. Normal venous duplex exam of the visualized veins. PHYSICIAN INTERPRETATION Venous examination of the both lower extremities demonstrated no evidence of venous thrombosis in the visualized veins. Normal compressibility and augmentation of all veins visualized. Signed 12/29/2017 09:04 AM Marbin Castillo MD, RPVI * Total iron binding capacity (12/29/2017 4:00 AM) Component Value Ref Range Iron level 141 59 - 158 ug/dL Iron binding capacity 258 200 - 400 ug/dL % Saturation 54.7 (H) 20.0 - 40.0 % Specimen Performing Laboratory Plasma specimen [facility] DEPARTMENT OF PATHOLOGY AND [address] [address] * Erythropoietin (12/29/2017 4:00 AM) Component Value Ref Range Erythropoietin 5.7 2.6 - 18.5 mIU/mL Specimen Performing Laboratory Serum [facility] [place] [address] Narrative ___K___ results called to and read back by _EHSAN SHIPLEY\\Facundo8(name/location) at __ 12/29/201706:23 (date/time) by LSB_. * Troponin (12/29/2017 4:00 AM) Only the most recent of 3 results within the time period is included. Component Value Ref Range Troponin <0.30 0.00 - 0.30 ng/mL Comment: 0.30 - 1.49 ng/ml May indicate increased risk of acute coronary syndrome. >=1.5 ng/ml Consistent with acute myocardial infarction. The diagnostic value of a single normal or non-diagnostic result is questionable. Serial samples at 2-6 hour intervals are required to rule out acute myocardial injury. Specimen Performing Laboratory Plasma specimen [facility] OF PATHOLOGY [address] [address] * Hepatitis acute panel (12/29/2017 4:00 AM) Component Value Ref Range Hepatitis A IgM Non-reactive Non-reactive Hepatitis B core IgM Non-reactive Non-reactive Hepatitis B surface Ag Non-reactive Non-reactive Hepatitis C Ab Non-reactive Non-reactive Specimen Performing Laboratory Serum [facility] OF PATHOLOGY [address] [address] Narrative ___K___ results called to and read back by _EHSAN SHIPLEY\\A8(name/location) at __ 12/29/201706:23 (date/time) by LSB_. * Partial thromboplastin time, activated (12/29/2017 4:00 AM) Only the most recent of 2 results within the time period is included. Component Value Ref Range PTT 38.3 (H) 23.0 - 36.0 sec Comment: PTT therapeutic range for unfractionated heparin is 61.0-112.0 seconds which corresponds to Anti-Xa 0.3-0.7 U/ml. Specimen Performing Laboratory Blood [facility] DEPARTMENT OF PATHOLOGY AND GENOMIC MEDICINE [address] [place] [address] * Thyroid stimulating hormone (12/29/2017 4:00 AM) Component Value Ref Range TSH 7.44 (H) 0.27 - 4.20 uIU/mL Specimen Performing Laboratory Plasma specimen [facility] DEPARTMENT OF PATHOLOGY AND GENOMIC MEDICINE [address] [place] [address] * T4, free (12/29/2017 4:00 AM) Component Value Ref Range T4, free 1.2 0.9 - 1.7 ng/dL Specimen Performing Laboratory Plasma specimen [facility] DEPARTMENT OF PATHOLOGY AND GENOMIC MEDICINE [address] [place] [address] * Parathyroid hormone (12/29/2017 4:00 AM) Component Value Ref Range PTH 46 15 - 65 pg/mL Specimen Performing Laboratory Blood [facility] DEPARTMENT OF PATHOLOGY AND GENOMIC MEDICINE [address] [place] [address] * Hemoglobin A1c (12/29/2017 4:00 AM) Component Value Ref Range Hemoglobin A1C 4.3 4.0 - 5.6 % Comment: HbA1c cutoffs for diagnosing diabetes: 4.0% - 5.6%=normal 5.7% - 6.4%=increased risk for diabetes (prediabetes) >=6.5%=diabetes Goals for glycemic control (ADA 2016) < 7.0% Target for non adults with diabetes. More or less stringent targets may be appropriate for individual patients. <7.5% Target for Children and adolescents with type 1 diabetes. Specimen Performing Laboratory Blood [facility] DEPARTMENT OF PATHOLOGY AND GENOMIC MEDICINE [address] [place] [address] Narrative ___K___ results called to and read back by _EHSAN HATHAWAYA8(name/location) at __ 12/29/201706:23 (date/time) by ELMIRAB_. * Folate level (12/29/2017 4:00 AM) Component Value Ref Range Folate 5.1 4.8 - 24.2 ng/mL Specimen Performing Laboratory Serum [facility] DEPARTMENT OF PATHOLOGY AND [address] [address] * Ferritin level (12/29/2017 4:00 AM) Component Value Ref Range Ferritin level 190 30 - 400 ng/mL Specimen Performing Laboratory Plasma specimen [facility] DEPARTMENT OF PATHOLOGY AND [address] [address] * Vitamin B12 level (12/29/2017 4:00 AM) Component Value Ref Range Vitamin B12 327 211 - 946 pg/mL Comment: Significant overlap exists between normal and deficiency states. However, most patients with deficiencies will have Serum B12 <200 pg/mL. Specimen Performing Laboratory Serum [facility] OF PATHOLOGY AND [address] [address] * Creatine kinase, total (CPK) (12/29/2017 4:00 AM) Component Value Ref Range Creatine kinase 127 39 - 308 U/L Specimen Performing Laboratory Plasma specimen [facility] PATHOLOGY [address] [address] * Lipid panel (12/29/2017 4:00 AM) Component Value Ref Range Cholesterol 93 <200 mg/dL Triglycerides 92 <150 mg/dL HDL cholesterol 6 (L) >40 mg/dL LDL cholesterol 18Comment: Result obtained by direct LDL <100 mg/dL measurement Lipid panel SeeBelow interpretation Comment: Total Cholesterol (mg/dL) <200 Desirable 200-239 Borderline-high >=240 High Triglycerides (mg/dL) <150 Normal 150-199 Borderline-high 200-499 High >=500 Very high HDL Cholesterol (mg/dL) <40 Low (male) <40 Low (female) LDL Cholesterol (mg/dL) <100 Optimal 100-129 Near or above optimal 130-159 Borderline-high 160-189 High >=190 Very high Risk Catergories that modify LDL goals. Risk Catergories LDL goal (mg/dL) CHD and CHD risk equivalent <100 (10-year risk >20%) Multiple (2+) risk factors <130 (10-year risk=<20%) 0-1 risk factors <160 (<10-year risk) Defining levels of lipids in metabolic syndrome Triglycerides >=150 mg/dL HDL Cholesterol Men <40 mg/dL Women <40 mg/dL Non-HDL cholesterol is a second target for therapy in persons with high triglycerides (>=200 mg/dL) Specimen Performing Laboratory Plasma specimen [facility] DEPARTMENT OF PATHOLOGY AND GENOMIC MEDICINE [address] [place] [address] * US Abdomen Complete (12/28/2017 9:30 PM) Specimen Performing Laboratory [facility] [address] [place] [address] Narrative EXAM: US ABDOMEN COMPLETE CLINICAL DATA:ABNORMAL LIVER FUNCTION TESTS, CIRRHOSIS, Renal Colic, elevated LFTsrenal failure COMPARISON: NONE. IMPRESSION: LIVER:The liver is heterogeneous and nodular compatible with cirrhosis. MPV:Doppler evaluation of the portal vein demonstrates normal hepatopedal flow..The portal vein measures 11 mm in diameter. GALLBLADDER:There is cholelithiasis. Gallbladder wall is 4 mm. This is thickened and could be due to hepatitis, ascites, or other cause. CBD: 4 mm, within normal limits. PANCREAS:The visualized portions of the pancreas are within normal limits. SPLEEN:The spleen is homogeneous and not enlarged measuring 12.2 cm. RIGHT KIDNEY:The right kidney is normal in size and echogenicity. There is no evidence of mass, calculi, or hydronephrosis.The right kidney measures 9.2 cm. LEFT KIDNEY:The left kidney is normal in size and echogenicity. There is no evidence of mass, calculi, or hydronephrosis. The left kidney measures 10.6 cm. AORTA:The visualized upper abdominal aorta demonstrates no evidence of ectasia or aneurysm. IVC:The visualized portions of the inferior vena cava are unremarkable. ASCITES: There is moderate ascites. PLEURAL EFFUSION:There is a left pleural effusion. [facility]-[id number] Procedure Note Interface, Radiology Results Incoming - 12/28/2017 10:17 PM CUSTODY ASSISTANT EXAM: US ABDOMEN COMPLETE CLINICAL DATA: ABNORMAL LIVER FUNCTION TESTS, CIRRHOSIS, Renal Colic, elevated LFTs renal failure COMPARISON: NONE. IMPRESSION: LIVER: The liver is heterogeneous and nodular compatible with cirrhosis. MPV: Doppler evaluation of the portal vein demonstrates normal hepatopedal flow.. The portal vein measures 11 mm in diameter. GALLBLADDER: There is cholelithiasis. Gallbladder wall is 4 mm. This is thickened and could be due to hepatitis, ascites, or other cause. CBD: 4 mm, within normal limits. PANCREAS: The visualized portions of the pancreas are within normal limits. SPLEEN: The spleen is homogeneous and not enlarged measuring 12.2 cm. RIGHT KIDNEY: The right kidney is normal in size and echogenicity. There is no evidence of mass, calculi, or hydronephrosis. The right kidney measures 9.2 cm. LEFT KIDNEY: The left kidney is normal in size and echogenicity. There is no evidence of mass, calculi, or hydronephrosis. The left kidney measures 10.6 cm. AORTA: The visualized upper abdominal aorta demonstrates no evidence of ectasia or aneurysm. IVC: The visualized portions of the inferior vena cava are unremarkable. ASCITES: There is moderate ascites. PLEURAL EFFUSION: There is a left pleural effusion. [facility]-[id number] * ECG 12 lead (12/28/2017 5:19 PM) Component Value Ref Range Ventricular rate 79 Atrial rate 79 WA interval 224 QRSD interval 128 QT interval 400 QTC interval 458 P axis 1 34 QRS axis 1 -39 T wave axis 19 EKG impression Sinus rhythm with 1st degree AV block-Left axis deviation-Right bundle branch block-Possible Lateral infarct , age undetermined-Abnormal ECG-No previous ECGs available- Specimen Performing Laboratory [facility] MUSE [address] [place] [address] * Urine eosinophils (12/28/2017 5:00 PM) Component Value Ref Range Eosinophils, urine SEE COMMENT Comment: Footnote--------- Unable to perform testing, specimen is _QNS. Recollect requested for UEOS (tests). _BALDO NERI/Facundo8 (name/location) notified by _CXI (tech ID) at 12/28/2017 21:19 ____ (date/time). Credit issued. Specimen Performing Laboratory [facility] DEPARTMENT OF PATHOLOGY AND GENOMIC MEDICINE [address] [place] [address] * XR Chest 2 Vw (12/28/2017 4:45 PM) Specimen Performing Laboratory [facility] [address] [place] [address] Narrative EXAMINATION:XR CHEST 2 VW CLINICAL HISTORY:Chest Pain COMPARISON:None IMPRESSION: Minimal linear atelectasis versus scar left base. Mild patchy atelectasis left upper lobe. Mild underlying COPD. No focal infiltrate. No effusion or pneumothorax. Nodular density at the right base likely representing nipple shadow. Repeat examination in slight obliquity with nipple marker recommended. Moderate kyphosis. Underlying osteopenia Moderate hiatal hernia Two-view chest [facility]-[id number] Procedure Note Hm Interface, Radiology Results Incoming - 12/28/2017 4:51 PM CUSTODY ASSISTANT EXAMINATION: XR CHEST 2 VW CLINICAL HISTORY: Chest Pain COMPARISON: None IMPRESSION: Minimal linear atelectasis versus scar left base. Mild patchy atelectasis left upper lobe. Mild underlying COPD. No focal infiltrate. No effusion or pneumothorax. Nodular density at the right base likely representing nipple shadow. Repeat examination in slight obliquity with nipple marker recommended. Moderate kyphosis. Underlying osteopenia Moderate hiatal hernia Two-view chest [facility]-[id number] * ECG ED Preliminary Interpretation - NOT AN ORDER (12/28/2017 4:23 PM) Matilde Callahan MD 01/09/2018 11:33 PM ECG ED Preliminary Interpretation - Not an Order Performed by: POOJA PALUMBO Authorized by: FÁTIMA CALLAHAN ECG reviewed by ED Physician in the absence of a chicken tender: yes Previous ECG: Previous ECG:Unavailable Interpretation: Interpretation: abnormal Rate: ECG rate:79 bpm ECG rate assessment: normal Rhythm: Rhythm: sinus rhythm Ectopy: Ectopy: none QRS: QRS axis:Left QRS intervals:Normal Conduction: Conduction: abnormal Abnormal conduction: 1st degree ST segments: ST segments:Non-specific T waves: T waves: normal * CRITICAL CARE (12/28/2017 4:23 PM) Matilde Callahan MD 01/09/2018 11:33 PM Critical Care Performed by: POOJA PALUMBO Authorized by: FÁTIMA CALLAHAN Critical care provider statement: Critical care time (minutes):45 Critical care time was exclusive of:Separately billable procedures and treating other patients and teaching time Critical care was necessary to treat or prevent imminent or life-threatening deterioration of the following conditions:Metabolic crisis and endocrine crisis Critical care was time spent personally by me on the following activities:Discussions with consultants, evaluation of patient's response to treatment, examination of patient, re-evaluation of patient's condition, ordering and performing treatments and interventions, ordering and review of laboratory studies and ordering and review of radiographic studies Lewis 'yes' if you are taking over critical care for this patient from another provider.: no * Beta hydroxybutyrate (12/28/2017 4:00 PM) Component Value Ref Range Beta hydroxybutyrate 0.14 0.02 - 0.27 mmol/L Specimen Performing Laboratory Serum [facility] DEPARTMENT OF PATHOLOGY AND [facility] MEDICINE [address] [place] [id number] * Lipase level (12/28/2017 4:00 PM) Component Value Ref Range Lipase 140 (H) 13 - 60 U/L Specimen Performing Laboratory Plasma specimen [facility] DEPARTMENT OF PATHOLOGY AND GENOMIC MEDICINE [address] [place] [id number] * Hepatitis C antibody (12/27/2017) Component Value Ref Range Hepatitis C Ab NON-REACTIVE NON-REACTIVE Signal/cutoff 0.02 <1.00 Specimen Performing Laboratory [facility] Narrative FASTING: UNKNOWN * Hepatitis A antibody IgM (12/27/2017) Component Value Ref Range Hepatitis A IgM NON-REACTIVE NON-REACTIVE Specimen Performing Laboratory [facility] Narrative FASTING: UNKNOWN * Hepatitis B core antibody IgM (12/27/2017) Component Value Ref Range Hepatitis B core IgM NON-REACTIVE NON-REACTIVE Specimen Performing Laboratory [facility] Narrative FASTING: UNKNOWN * Hepatitis B surface antigen (12/27/2017) Component Value Ref Range Hepatitis B surface Ag NON-REACTIVE NON-REACTIVE Specimen Performing Laboratory [facility] Narrative FASTING: UNKNOWN after 01/15/2017 Insurance Payer Benefit Subscriber ID Type Phone Address Plan / Group AETNA MEDICARE AETNA xxxxxxxx O MEDICARE HMO/PPO [facility] [facility] [place] [address]
--- NOTE | 2018-01-16 15:41 | Operative Report ---
DATE OF PROCEDURE: January 16, 2018 PREOPERATIVE DIAGNOSIS: Chronic kidney disease. POSTOPERATIVE DIAGNOSIS: Chronic kidney disease. OPERATIVE PROCEDURES: Creation of left forearm primary arteriovenous fistula. INFECTION CONTROL PRACTITIONER: None. ANESTHESIA: Axillary block. INDICATIONS AND FINDINGS: The patient is an 82-year-old male with chronic kidney disease, anticipated to need hemodialysis in the near future. At surgery, the patient was found to have an excellent pulse in the radial artery, and there was an adequate size cephalic vein which was patent to do the primary fistula. At the end of the procedure, there was a palpable pulse in the radial artery distal to the fistula and a palpable thrill over the fistula. TECHNIQUE: After adequate left axillary block, the left arm was prepped and draped in sterile fashion with Dino solution. A transverse incision made just proximal to the radial head over the cephalic vein and radial artery. The cephalic vein was identified. It was adequate caliber for the fistula, about 3 mm in diameter. It was dissected free and controlled with vessel loop. Side branches were ligated with Hemoclips. The vein was dissected free proximally and distally as much as possible. More medially, incision was carried deeper, and the radial artery was dissected free and controlled with vessel loop. The cephalic vein was then divided as distally as possible. Distal portion ligated with Hemoclips. A #3 Stefania catheter was passed through the vein. It passed easily without resistance. The vein was then fashioned appropriately for anastomosis. Patient was given 5,000 units of intravenous heparin. The radial artery was clamped proximally and distally. Arteriotomy was made. Anastomosis was made between the end of the vein and the side of the artery with a running suture of 7-0 Prolene. Once flow was allowed through the fistula, there was a palpable thrill over the fistula and palpable pulse in the radial artery distal to the fistula. Hemostasis was seen to be adequate. The wound was then closed with 3-0 Vicryl to the subcutaneous tissue and gabrielle for the skin. Sterile dressing was applied. Patient tolerated the procedure well. Estimated blood loss was 10 mL. There were no complications. All counts were correct. Patient was taken to the recovery room in satisfactory condition. Job#: [id number] cc:EMMA LEWIS MD
== END | disposition home or self-care (01) ==
LOC: OR 10:22
PROVIDERS: ATTEND Surgery
DX: E11.22 Type 2 diabetes mellitus with diabetic chronic kidney disease (principal); I12.0 Hypertensive chronic kidney disease with stage 5 chronic kidney disease or end stage renal disease; N18.6 End stage renal disease; J44.9 Chronic obstructive pulmonary disease, unspecified; K74.60 Unspecified cirrhosis of liver; Z01.810 Encounter for preprocedural cardiovascular examination; Z01.812 Encounter for preprocedural laboratory examination; Z01.818 Encounter for other preprocedural examination; Z68.31 Body mass index [BMI] 31.0-31.9, adult
CPT/HCPCS: 36415 ×2; 36820; 71046; 80053; 82948; 85025; 85610; 85730; 93005; J0690; J1644; J2001 ×2; J2250; J2795; J7040; J2720

== ENCOUNTER 2018-06-20 12:10 | Inpatient (IN) | payer MEDICARE ==
[~2018-06-20] VITALS: Ht 165.1 cm; Wt 68.7 kg
[~2018-06-20 12:10] MED LIST changes: -CEFAZOLIN SOD 1 GM VIAL ONE; -FENTANYL CITRATE/PF 100MCG/2 ML INJ ONE; -HEPARIN SOD (PORCINE) 5,000 UNIT/ML VIAL ONE; -LIDOCAINE 2% /EPINEPHRINE 20 ML SDV INJ ONE; -LIDOCAINE HCL 1% LOCAL INJ 20 ML VIAL ONE; -MIDAZOLAM HCL 2 MG/2 ML VIAL ONE; -PROTAMINE SULFATE 10 MG/ML 5 ML VIAL ONE; -ROPIVACAINE 0.5% 5 MG/ML 30 ML SDV ONE; -SODIUM CHLORIDE 0.9% 100 ML 100 ML ONE; -SODIUM CHLORIDE 0.9% 500ML 500 ML ONE
[2018-06-20] MEDS ORDERED: ASPIRIN 81 MG CHEW TAB PO ONE (12:30)
[2018-06-20 12:38] LABS: BASOPHILS % 0.3 % (0.0-1.0); EOSINOPHILS % 0.3 % (0.0-6.0); HEMATOCRIT 24.8 % (38.2-49.6); HEMOGLOBIN 8.9 g/dL (14.0-18.0); LYMPHOCYTES % 23.8 % (18.0-39.1); MEAN CORPUSCULAR HEMOGLOBIN 36.8 pg (28-32); MEAN CORPUSCULAR HGB CONC 35.9 g/dL (31-35); MEAN CORPUSCULAR VOLUME 102.5 fL (81-99); MONOCYTES # (AUTO) 0.4 (0.2-0.8); MONOCYTES % 10.5 % (4.4-11.3); NEUTROPHILS # (AUTO) 2.6 (2.1-6.9); NEUTROPHILS % 64.6 % (38.7-80.0); PLATELET COUNT 103 x10e3/uL (140-360); RED BLOOD COUNT 2.42 x10e6/uL (4.3-5.7); RED CELL DISTRIBUTION WIDTH 13.4 % (11.7-14.4)
[2018-06-20 12:47] LABS: INR 2.48; PROTHROMBIN TIME 25.2 seconds (11.9-14.5)
[2018-06-20 12:48] LABS: PARTIAL THROMBOPLASTIN TIME 46.5 seconds (23.8-35.5)
[2018-06-20 12:54] LABS: ALBUMIN 2.6 g/dL (3.5-5.0); ALBUMIN/GLOBULIN RATIO 0.8 (0.8-2.0); ANION GAP 18.2 mmol/L (8-16); CALCIUM 7.8 mg/dL (8.4-10.2); CREATININE, SERUM 3.76 mg/dL (0.72-1.25); MAGNESIUM 1.7 MG/DL (1.3-2.1); POTASSIUM 3.2 mmol/L (3.5-5.1)
[2018-06-20 13:01] LABS: CREATINE KINASE MB 2.5 ng/mL (0-5.0)
--- NOTE | 2018-06-20 13:27 | Diagnostic Imaging Report ---
EXAMINATION: PA and lateral views of the chest. COMPARISON: Chest two views 01/14/2018 CLINICAL HISTORY: Weakness, shortness of breath, diabetic DISCUSSION: Lines/tubes: None. Lungs: The lungs are well inflated and grossly clear. There is no evidence of consolidation or pulmonary edema. Pleura: There is no pleural effusion or pneumothorax. Heart and mediastinum: Cardiomediastinal silhouette is unremarkable. Pulmonary vasculature is normal. Stable rounded convexity projecting in the retrocardiac region on the frontal view, which may represent a hiatal hernia. Bones and soft tissues: No acute bony abnormalities. Degenerative changes in the thoracic spine IMPRESSION: No acute cardiopulmonary abnormalities. Stable rounded convexity projecting in the retrocardiac region, which may represent a hiatal hernia. Signed by: Dr. Ricardo Christine M.D. on 06/20/2018 1:23 PM
--- NOTE | 2018-06-20 14:32 | Diagnostic Imaging Report ---
EXAMINATION: Head CT HISTORY: Weakness, status post fall, head trauma, evaluate for intracranial bleed COMPARISON: None. TECHNIQUE: Multidetector axial images were obtained without contrast from the foramen magnum to the vertex . The images were reconstructed using brain and bone algorithms. Thin section brain images were reformatted into coronal and sagittal planes. Intravenous contrast: None. Image quality: Motion/streaking artifact limits the evaluation of the skull base and posterior cranial fossa. Dose modulation, iterative reconstruction, and/or weight based adjustment of the mA/kV was utilized to reduce the radiation dose to as low as reasonably achievable. FINDINGS: Parenchyma: 1. Scatter and mildly confluent periventricular white matter hypodensities, most likely nonspecific chronic microvascular ischemic changes. 2. No mass or hemorrhage. No CT evidence of acute territorial vascular insult. Extra-axial spaces:No abnormal density. No extra-axial fluid collections Brain volume: Normal for age. Ventricles: No hydrocephalus or displacement. Arteries: No density suggestive of thrombus. Dural sinuses: No abnormal density. Extra-axial spaces: No abnormal density. Foramen magnum: No mass, Chiari malformation, or basilar invagination. Sella: No obvious mass. Paranasal/mastoid sinuses: Imaged portions unremarkable. Skull/Scalp: No lytic or blastic lesions. No fractures. IMPRESSION: 1. No acute post traumatic intracranial hemorrhage. 2. Mild chronic microvascular ischemic changes. Signed by: Dr. Carmenza Lantigua M.D. on 06/20/2018 2:29 PM
[2018-06-20] MEDS ORDERED: DEXTROSE 50% SYRINGE 50 ML IV PRN (16:15)
[2018-06-20 16:38] LABS: BILIRUBIN,URINE NEGATIVE (NEGATIVE); CLARITY,URINE SL CLOUDY (CLEAR); COLOR,URINE YELLOW (YELLOW); KETONES,URINE NEGATIVE (NEGATIVE); LEUKOCYTE ESTERASE ,URINE NEGATIVE (NEGATIVE); NITRITE,URINE NEGATIVE (NEGATIVE); PROTEIN,URINE DIPSTICK TRACE (NEGATIVE); URINE UROBILINOGEN 0.2 mg/dL (0.2 - 1)
[2018-06-20 16:49] LABS: EPITHELIAL CELLS,URINE RARE /LPF
[2018-06-20 19:29] VITALS: BP 152/65
[2018-06-20 20:00] VITALS: BP 152/65
[2018-06-20] MEDS: SODIUM CHLORIDE 0.9% 1000ML 1,000 ML IV SCH (20:04)
[2018-06-20] MEDS: INSULIN REGULAR, HUMAN 100 UNIT/1 ML 3ML VIAL SQ SCH (21:00)
[2018-06-20 21:05] LABS: CREATINE KINASE MB 2.8 ng/mL (0-5.0)
[2018-06-21] VITALS (9 sets, daily range): BP systolic 127–146; BP diastolic 59–68
[2018-06-21 02:06] LABS: CREATINE KINASE MB 2.7 ng/mL (0-5.0)
[2018-06-21] MEDS: SODIUM CHLORIDE 0.9% 1000ML 1,000 ML IV SCH (04:38)
[2018-06-21 06:50] LABS: CHOL/HDL RATIO 5.1 (3.9-4.7)
[2018-06-21 07:01] LABS: CREATINE KINASE MB 2.4 ng/mL (0-5.0)
[2018-06-21] MEDS: INSULIN REGULAR, HUMAN 100 UNIT/1 ML 3ML VIAL SQ SCH ×4 (07:30→20:33)
[2018-06-21] MEDS ORDERED: FINASTERIDE5 MG PO (09:47)
[2018-06-21] MEDS: SEVELAMER CARBONATE 800 MG TAB PO SCH ×2 (12:00→17:42)
--- NOTE | 2018-06-21 12:22 | Consultation ---
DATE OF CONSULTATION: June 21, 2018 RENAL CONSULTATION ADMITTING PHYSICIAN: Dr. Cheung. REASON FOR CONSULTATION: Renal failure. HISTORY OF PRESENT ILLNESS: An 83-year-old male with history of stage 5 chronic kidney disease secondary to diabetic nephropathy, was brought to [facility] for weakness. The patient's history is taken from family members who are at bedside. Patient was apparently hospitalized in October of 2017 with kidney failure at [facility]. It was determined that the patient had chronic kidney disease due to diabetes and he is being followed by Dr. Kemp as an outpatient. Patient's labs in April of 2018 revealed a creatinine of 4.11 and at that time he was feeling good and on multiple medications for kidney disease as well as tight control of his diabetes. According to his daughter, patient does not complain and he complained of feeling weak and poor appetite as well as itching and patient was brought to the hospital. Patient was admitted and nephrology consultation was called. REVIEW OF SYSTEMS: As above; 1. Weakness. 2. Anorexia. 3. Itching. 4. No nausea. 5. No vomiting. 6. No insomnia. All other systems negative. PAST MEDICAL HISTORY 1. Chronic kidney disease, stage 5, secondary to diabetic nephropathy. 2. Diabetes. 3. Hypertension. 4. Cirrhosis. PAST SURGICAL HISTORY: Left upper extremity AV fistula. SOCIAL HISTORY: Stopped drinking 20 years ago. Stopped tobacco 20 years ago. No IV drugs. FAMILY HISTORY: No family history of kidney disease. ALLERGIES: No known drug allergies. CURRENT MEDICATIONS: See list. PHYSICAL EXAMINATION VITALS: Blood pressure 142/63, pulse 68, respiratory rate 18, temperature 96.9. GENERAL: In no apparent distress. HEENT: Oropharynx clear. No scleral icterus. No peripheral edema. NECK: Supple. No elevation of jugular venous pressure. No lymphadenopathy. CHEST: Clear to auscultation anteriorly bilaterally. CARDIOVASCULAR: Regular rhythm. No murmurs or rubs. ABDOMEN: Soft, positive bowel sounds. No tenderness. No rebound. EXTREMITIES: No edema, no clubbing, no cyanosis. Trace flank edema. LABORATORY DATA: Sodium 131, potassium 3.2, chloride 94, BUN 55, creatinine 3.76, calcium 7.8. Total bilirubin 4.6, alkaline phosphatase 159, BMP 316, albumin 2.6. White count 4. Hemoglobin 8.9. Hematocrit 24.8. Platelets 103. INR 2.48. Urine cloudy. No RBCs. No WBCs. Chest x-ray clear. ASSESSMENT AND PLAN 1. Stage 5 chronic kidney disease. Patient's symptoms may be due to uremia. We will stop some of his outpatient medications and consider initiating patient on renal replacement therapy if no other etiology is found. 2. Euvolemic on exam. We will discontinue IV fluids. 3. Diabetes per primary team. 4. Lytes. We will repeat in the morning, place the patient on fluid restriction for hyponatremia. 5. Anemia. We will check iron stores and consider starting the patient on erythropoietin. I have discussed above with Dr. Cheung. Job#: [id number] JIGeo
[2018-06-21] MEDS ORDERED: TARON FORTE CA1 EACH PO (14:55)
[2018-06-21] MEDS ORDERED: TAMSULOSIN HCL 0.4 MG CAP PO SCH ×2 (17:30→21:00)
[2018-06-21] MEDS ORDERED: FINASTERIDE 5 MG TAB PO SCH ×2 (17:30→21:00)
[2018-06-21] MEDS: SODIUM BICARBONATE 650 MG TAB PO SCH (17:34)
[2018-06-21] MEDS: TAMSULOSIN HCL 0.4 MG CAP PO SCH (20:00)
[2018-06-21] MEDS: FINASTERIDE 5 MG TAB PO SCH (20:00)
--- NOTE | 2018-06-21 20:29 | Consultation ---
DATE OF CONSULTATION: June 21, 2018 NEUROLOGY CONSULT NOTE HISTORY OF PRESENT ILLNESS: Mr Tran is an 83-year-old tzulg-utyt-bualyaiz man with past medical history significant for hypertension, hyperlipidemia, diabetes mellitus type 2, and chronic kidney disease stage 5 admitted to [facility] on June 20, 2018 with generalized weakness. On 06/17/2018: Patient noted a heavy sensation in his legs as well as nausea. These symptoms persisted until Tuesday, June 19, 2018, when Mr. Tran noted weakness of both legs. When asked to further describe his weakness, the patient reports his legs "feel tired". He does not report numbness, burning pain, tingling, pins and needles sensation, or other abnormal sensations. He does not endorse muscle spasm or cramping. In addition to weakness of the legs, the patient's daughter reports a poor appetite with diminished p.o. intake. Mr. Tran, who normally consumes 3 meals per day, has hardly had anything to eat or drink since 06/19/2018. On the same day, the patient experienced a single fall without injury. Mr. Tran does not report decreased urine output, worsening edema, or confusion. He does endorse fatigue as described above. There is no known family history of nerve or muscle disease. REVIEW OF SYSTEMS: Nausea, weakness of the legs, impairment of balance and gait, low back pain, falls. Otherwise the 12 point review of systems is negative. PAST MEDICAL HISTORY: Hypertension, hyperlipidemia, diabetes mellitus type 2, thyroid disease, chronic kidney disease stage 5, benign prostatic hypertrophy. PAST SURGICAL HISTORY: Bilateral cataract removal, placement of an AV fistula in the left forearm. PAST HOSPITALIZATIONS: Surgeries/procedures as listed, hospitalized in October 2017 with renal failure. FAMILY MEDICAL HISTORY: The patient's paternal and maternal grandparents are . Their medical histories are unknown. Both parents are . Mr. Tran's father from a stroke. His mother from presumed natural causes at the age of 93 years. The patient has one brother who is from coronary artery disease with myocardial infarction. Two brothers are alive and healthy. One sister is from a gastrointestinal infection. A second sister is from unknown causes. Two sisters are alive and reportedly healthy. Mr. Tran has 1 son who is from choking. He had epilepsy as well. One son is alive and has hypertension. One daughter is at the age of 29 years from "natural causes." Two daughters are alive and healthy. SOCIAL HISTORY: Patient is . He is retired. Mr. Tran does report a prior history of tobacco use, but quit smoking cigarettes approximately 20 years ago. The patient stopped drinking alcohol approximately 20 years ago as well. There is no reported current or prior recreational drug use. HOME MEDICATIONS: Fenofibrate 160 mg p.o. daily, finasteride 5 mg by mouth at bedtime daily, Lasix 40 mg by mouth daily, Kian Forte caps, 1 capsule by mouth daily, levothyroxine 50 mcg by mouth daily, pravastatin 40 mg by mouth at bedtime daily, Renagel 800 mg by mouth three times daily, sodium bicarbonate 650 mg by mouth twice daily, sodium polystyrene sulfonate 15 grams per 60 mL, tamsulosin 0.4 mg by mouth daily. ALLERGIES: NO KNOWN DRUG ALLERGIES. NO KNOWN FOOD ALLERGIES. NO KNOWN ALLERGIES TO LATEX. NO KNOWN ALLERGIES TO IODINE OR OTHER CONTRAST MATERIALS. PHYSICAL EXAMINATION: VITAL SIGNS: Height 65 inches, weight 155 pounds, BMI 25.9 kg per meter squared. Blood pressure 127/60 mmHg, pulse 73 beats per minute. Respiratory rate 20 breaths per minute. Oxygen saturation 98% on room air. GENERAL: The patient is awake and alert. Does not appear distressed. HEENT: Normocephalic and atraumatic. Pupils are surgical. Moist mucous membranes. NECK: Supple. No appreciable thyromegaly. No appreciable carotid bruits. CARDIOVASCULAR: S1 and S2. Regular rate and rhythm. No murmurs, rubs or gallops. RESPIRATORY: Clear to auscultation bilaterally. No wheezes, rhonchi or rales. EXTREMITIES: The skin is warm and dry. No clubbing or cyanosis. There is trace pretibial pitting edema. The posterior tibial and dorsalis pedis pulses are trace and symmetric. There is an AV fistula in the left forearm. SKIN: Ecchymoses over both arms. NEUROLOGIC: Memory/attention: The patient is awake and alert. Oriented to person, place, time, and situation. CRANIAL NERVES: Cranial nerve I: Not tested. Cranial nerves II, III, IV, : Pupils are surgical. Extraocular movements intact. No nystagmus. Cranial nerve V: Sensation to light touch and pinprick is intact in the bilateral V1 through V3 distributions. Strength of the temporalis and masseter muscles is within normal limits. Cranial nerve VII: The face is symmetric, as are all facial movements. Strength is within normal limits. Cranial nerve VIII: Hearing is intact to finger rub bilaterally. Cranial nerve IX and X: The soft palate elevates equally and symmetrically. Cranial nerve XI: Normal strength of the bilateral sternocleidomastoid and trapezius muscles. Cranial nerve XII: The tongue protrudes midline and moves symmetrically from side to side. STRENGTH: Bulk is normal, and strength is 4+ to 5 out of 5 in the bilateral deltoids, biceps, triceps, wrist flexors and extensors, finger flexors and extensors, intrinsic hand muscles, knee flexors and extensors, ankle dorsiflexion and plantar flexion, and intrinsic foot muscles. Strength is 3- out of 5 in the bilateral hip flexors. There is effort dependent weakness present, probably secondary to pain. Tone is normal. DTRs: Deep tendon reflexes are 1+ and symmetric at the triceps, biceps and brachioradialis. Deep tendon reflexes are absent and symmetric at the patellas, and Achilles. Plantar responses are mute bilaterally. SENSATION: Intact to light touch and pinprick in both arms and both legs. CEREBELLAR: Zgkvmv-mory-mcxfml and heel-hidalgo movements are intact without dysmetria or other impairment. GAIT: Deferred. SPEECH: Spontaneous speech is normal without appreciable dysarthria or aphasia. Repetition is intact. INVOLUNTARY MOVEMENTS: None. PRONATOR DRIFT: As per motor exam. LABORATORY DATA: There are multiple abnormalities of the complete metabolic panel. Sodium is 131, potassium is 3.2, chloride is 94, anion gap is 18.2, BUN is 55, creatinine is 3.76, estimated GFR is 16. BUN to creatinine ratio is 15, glucose is 158. Calcium is 7.8, magnesium was 1.7. Total bilirubin is 4.6, AST 78, ALT 32, alkaline phosphatase 159, total protein 5.9, albumin 2.6, globulin 3.3, albumin to globulin ratio 0.3. Creatinine kinase 231, 232, 223, 200. CK-MB 2.50, 2.80, 2.70, 2.40. Troponin I 0.035, 0.045, 0.039, 0.045. B-natriuretic peptide 316.4, 404.3. Lactic acid 22.4. Total cholesterol 56, triglycerides 69, LDL cholesterol 31, HDL cholesterol 11. The CBC with differential and platelets reveals a white blood cell count of 4.00 with a normal differential. The hemoglobin and hematocrit are 8.9 and 24.8, respectively. The platelet count is 103,000. PT 25.2, INR 2.48, PTT 46.5. Urinalysis was significant for trace protein. Blood cultures drawn on June 17, 2018 showed no growth after 24 hours. DIAGNOSTIC STUDIES: Chest x-ray 06/20/2018: No acute cardiopulmonary abnormalities. Stable rounded convexity projecting in the retrocardiac region, which may represent a hiatal hernia. CT of the brain without contrast 06/20/2018: On my review, there is no evidence of recent large territorial ischemia, hemorrhage, mass, or mass effect. Cerebral volumes are appropriate for age. There are findings compatible with mild to moderate chronic small vessel ischemic disease. ASSESSMENT AND PLAN: Mr. Tran is an 83-year-old [id number]-pztlgvwd man with past medical history significant for hypertension, hyperlipidemia, diabetes mellitus type 2, and chronic kidney disease stage 5 admitted to [facility] on June 20, 2018 with generalized weakness. The patient has undergone a thorough neurological examination as detailed. The only significant finding was weakness of the bilateral hip flexors. This weakness is thought to be effort dependent secondary to pain. The patient's laboratory data and other diagnostic studies have been reviewed and are documented above. In my opinion, the patient's symptoms, including his generalized weakness and fatigue, are secondary to uremia. The patient's muscle mass and consistency is appropriate for age. With the exception of the weakness of the bilateral hip flexors, his strength is appropriate for age. Mr. Tran does not report muscle spasms or cramping of the legs or arms. There are no reported fasciculations or fibrillations. Lastly, there is no known history of neuromuscular disease. 1. Muscle enzymes will be drawn. 2. Mr. Tran will be monitored clinically for progressively worsening weakness. 3. Defer treatment of the remaining medical comorbidities to the primary and other services following the patient. Thank you for this consultation. I will continue to follow this patient while he remains in the hospital. Time spent: 70 minutes. Job#: [id number] [id number]
[2018-06-21] MEDS: CEFTRIAXONE SOD 1 GM VIAL IV SCH (20:30)
--- NOTE | 2018-06-21 20:52 | Consultation ---
DATE OF CONSULTATION: June 21, 2018 GASTROENTEROLOGY CONSULTATION REFERRING PHYSICIAN: Dr. Cheung REASON FOR CONSULTATION: Cirrhosis. HISTORY OF PRESENT ILLNESS: Mr. Tran is a pleasant 83-year-old male with below past medical history. He apparently has history of cirrhosis. He came in with weakness and trouble walking. He is noted to be anemic. He denies any overt bleeding. He has chronic kidney disease and recent creation of AV fistula this past December. He has also been pruritic. PAST MEDICAL HISTORY: 1. Chronic kidney disease, stage 5 secondary to diabetic nephropathy. 2. Cirrhosis. 3. Diabetes. 4. Hypertension. 5. Hypothyroidism. MEDICATIONS AND ALLERGIES: Reviewed. Please see MAR, medication reconciliation form. SOCIAL HISTORY: Prior remote tobacco and alcohol. No illicit substances. FAMILY HISTORY: Reviewed. No history of cirrhosis. REVIEW OF SYSTEMS: Twelve-system review is positive for that mentioned in HPI, otherwise unremarkable. PHYSICAL EXAMINATION: GENERAL: Pleasant, alert, oriented, in no acute distress, little bit lethargic. NECK: Supple. LUNGS: Clear. CARDIOVASCULAR: S1, S2. ABDOMEN: Soft. Normal bowel sounds. Nontender. EXTREMITIES: No clubbing, cyanosis. He has some mild edema. PSYCH: Calm and cooperative. NEUROLOGIC: Nonfocal. The electronic health records were reviewed for laboratory and radiologic studies as well as history. ASSESSMENT: 1. Anemia, macrocytic. Would follow up B12. 2. Cirrhosis, elevated liver function tests, and coagulopathy. PLAN: At the current time, he will need ultrasound of liver. Will need to rule out HCC and hepatoma. He will likely need EGD down the road. We will also check ammonia level. Will put him on Xifaxan and lactulose. Will need to rule out any infectious processes. Thank you very much for asking me to see Mr. Tran. Any questions or concerns, please do not hesitate to contact me. Will follow with you. Job#: [id number]
[2018-06-22] VITALS (7 sets, daily range): BP systolic 118–138; BP diastolic 55–61
[2018-06-22] MEDS: SODIUM BICARBONATE 650 MG TAB PO SCH ×2 (05:26→18:23)
[2018-06-22] MEDS: LEVOTHYROXINE SODIUM 50 MCG TAB PO SCH (05:26)
[2018-06-22] MEDS: FUROSEMIDE 40 MG TAB PO SCH (05:26)
[2018-06-22] MEDS ORDERED: SODIUM BICARBONATE 650 MG TAB PO SCH ×2 (05:30→09:00)
[2018-06-22] MEDS ORDERED: LEVOTHYROXINE SODIUM 50 MCG TAB PO SCH (06:00)
[2018-06-22 06:02] LABS: BASOPHILS % 0.3 % (0.0-1.0); EOSINOPHILS % 0.6 % (0.0-6.0); HEMATOCRIT 21.8 % (38.2-49.6); HEMOGLOBIN 7.7 g/dL (14.0-18.0); LYMPHOCYTES % 28.6 % (18.0-39.1); MEAN CORPUSCULAR HEMOGLOBIN 36.8 pg (28-32); MEAN CORPUSCULAR HGB CONC 35.3 g/dL (31-35); MEAN CORPUSCULAR VOLUME 104.3 fL (81-99); MONOCYTES # (AUTO) 0.4 (0.2-0.8); NEUTROPHILS # (AUTO) 2.1 (2.1-6.9); NEUTROPHILS % 60.2 % (38.7-80.0); PLATELET COUNT 92 x10e3/uL (140-360); RED BLOOD COUNT 2.09 x10e6/uL (4.3-5.7); RED CELL DISTRIBUTION WIDTH 13.9 % (11.7-14.4)
[2018-06-22 06:18] LABS: CALCIUM 7.5 mg/dL (8.4-10.2); CREATININE, SERUM 3.14 mg/dL (0.72-1.25); PHOSPHORUS 3.4 MG/DL (2.3-4.7)
[2018-06-22 06:39] LABS: FERRITIN 169.11 ng/mL (21.81-274.66)
[2018-06-22] MEDS: INSULIN REGULAR, HUMAN 100 UNIT/1 ML 3ML VIAL SQ SCH ×4 (07:30→21:00)
[2018-06-22] MEDS: SEVELAMER CARBONATE 800 MG TAB PO SCH ×3 (08:30→18:23)
[2018-06-22] MEDS: LACTULOSE SYRUP 20 GM/30 ML UDC PO SCH ×2 (09:00→18:23)
[2018-06-22] MEDS: RIFAXIMIN 550 MG TABLET PO SCH ×2 (09:00→18:23)
[2018-06-22] MEDS ORDERED: FUROSEMIDE 40 MG TAB PO SCH (09:00)
[2018-06-22] MEDS ORDERED: POTASSIUM CHLORIDE 20 MEQ TAB CR PO NR (11:30)
[2018-06-22] MEDS ORDERED: EPOETIN ALFA 10000 UNIT/ML VIAL SC NR (12:15)
--- NOTE | 2018-06-22 12:37 | Progress Note ---
DATE: June 22, 2018 INTERNAL MEDICINE PROGRESS NOTE SUBJECTIVE: The patient is a 73-year-old male who came here with change in mental status. He is much more awake and alert right now, complaining of tailbone pain. PHYSICAL EXAMINATION VITAL SIGNS: Blood pressure 118/59. Temperature 97.2. Heart rate 81 per minute. Respiratory rate is 20 per minute. Oxygen saturation is 100%. HEART: Regular rhythm. Normal S1, S2 sounds. LUNGS: Clear bilaterally. ABDOMEN: Soft. EXTREMITIES: No evidence of cyanosis, edema or trauma. BLOOD WORK: We have BMP with a sodium 136, potassium 3.0, chloride 104, CO2 22, BUN 48, creatinine 3.14. Glucose 86. On the CBC, white blood count 3.50, hemoglobin 7.7, hematocrit 21.8, platelet count 92,000. PT 25.2, INR 2.48, PTT 46.5. AST 78, ALT 32, total bilirubin 4.6, alkaline phosphatase 159. The CT of the head showed no evidence of any stroke. Chest x-ray did not show any infiltrate or fluid in the lungs. FINAL IMPRESSION 1. Hepatic encephalopathy. 2. Diabetes mellitus, type 2, with end-stage renal disease. 3. Hypokalemia. 4. Chronic anemia secondary to end-stage renal disease. 5. Cirrhosis of liver. 6. Pancytopenia. 7. Coagulopathy, most likely secondary to liver cirrhosis. 8. He has a right red eye. 1. He has pain on the tailbone. PLAN OF TREATMENT 1. We are going to do a pelvis x-ray. 2. We are going to get an ophthalmology consult with Dr. Loaiza. It is most likely that the bleeding in the eye will go away by itself. 3. We are going to replace potassium 40 mEq p.o. one time. 4. Dr. Montgomery is evaluating the patient for possible dialysis. 5. Continue monitoring blood sugar a.c. and nightly. 6. Continue sevelamer 800 mg 3 times a day. 7. Levothyroxine 50 mcg daily. 8. Flomax 0.4 mg daily. 9. Furosemide 40 mg daily. 10. Lactulose 30 grams twice a day. 11. Sodium bicarbonate 350 mg twice a day. 12. Xifaxan 550 mg twice a day. 13. Proscar 5 mg daily. 14. Ceftriaxone 1 gram IV once a day. 15. Case has been discussed with the family. All the medications have been reviewed. Labs have been reviewed. Plan of treatment has been implemented. Time spent: 45 minutes. Job#: [id number]
--- NOTE | 2018-06-22 13:52 | Diagnostic Imaging Report ---
EXAM: Right Upper Quadrant Abdominal Ultrasound INDICATION: Cirrhosis \S\cirrhosis COMPARISON: None. TECHNIQUE: Transverse and longitudinal images of the upper abdomen were obtained. FINDINGS: Liver: Size: 12.5 cm in the right midclavicular line, normal Appearance: Normal echogenicity, lobulated contour Mass: There is a 1.9 x 2.5 x 2.5 cm hypoechoic mass in the left hepatic lobe. Gallbladder: Stones/Sludge: Multiple stones are seen in the gallbladder Wall: 0.5 cm Appearance: Mild wall thickening, likely related to psoriasis. Sonographic Mcleod's Sign: Negative Bile Ducts: Intrahepatic Ducts: No dilatation Extrahepatic Ducts: Common bile duct measures 0.3 cm, no dilatation Pancreas: Pancreas is not well seen due to overlying bowel gas. Right Kidney: Length: 7.1 cm Echogenicity: Normal Collecting System: No hydronephrosis Stone: None Cyst/Mass: None Vessels: Aorta: Visualized portions are normal Inferior Vena Cava: Not visualized due to overlying bowel gas Main Portal Vein: 1.1 cm, normal size with hepatopedal flow. Free Fluid: Small to moderate amount of ascites IMPRESSION: 1. Cirrhotic liver with ascites. 2. 2.5 cm hypoechoic liver mass. Recommend liver protocol CT or MRI abdomen (with and without contrast) to exclude hepatocellular carcinoma. 3. Cholelithiasis. Signed by: Dr. Manfred Manjarrez M.D. on 06/22/2018 1:49 PM
--- NOTE | 2018-06-22 14:16 | Diagnostic Imaging Report ---
EXAMINATION: PELVIS AP 1-2 VIEWS 06/22/2018 11:14 AM COMPARISON: None INDICATION: Fall 3 days ago DISCUSSION: 1 view of the pelvis No fracture or dislocation. Mild degenerative changes of the hips. Moderate degenerative changes of the sacroiliac joints and visualized lower lumbar spine Diffuse vascular calcifications. IMPRESSION: No acute fracture or dislocation. Manfred Manjarrez MD Signed by: Dr. Manfred Manjarrez M.D. on 06/22/2018 2:13 PM
[2018-06-22] MEDS ORDERED: HYDRALAZINE HCL 25 MG TAB PO SCH (15:00)
[2018-06-22] MEDS: TAMSULOSIN HCL 0.4 MG CAP PO SCH (21:56)
[2018-06-22] MEDS: CEFTRIAXONE SOD 1 GM VIAL IV SCH (21:56)
[2018-06-22] MEDS: FINASTERIDE 5 MG TAB PO SCH (21:56)
[2018-06-23] VITALS (8 sets, daily range): BP systolic 123–144; BP diastolic 59–67
[2018-06-23] MEDS: LEVOTHYROXINE SODIUM 50 MCG TAB PO SCH (05:46)
[2018-06-23] MEDS: SODIUM BICARBONATE 650 MG TAB PO SCH ×2 (05:46→17:09)
[2018-06-23] MEDS: FUROSEMIDE 40 MG TAB PO SCH (05:46)
[2018-06-23 06:26] LABS: ANION GAP 15.8 mmol/L (8-16); CALCIUM 8.2 mg/dL (8.4-10.2); CREATININE, SERUM 3.4 mg/dL (0.72-1.25)
[2018-06-23 06:29] LABS: POTASSIUM 3.8 mmol/L (3.5-5.1)
[2018-06-23] MEDS: INSULIN REGULAR, HUMAN 100 UNIT/1 ML 3ML VIAL SQ SCH ×4 (07:30→21:00)
[2018-06-23] MEDS ORDERED: EPOETIN ALFA 10000 UNIT/ML VIAL SC ONE (08:15)
[2018-06-23] MEDS: SEVELAMER CARBONATE 800 MG TAB PO SCH ×3 (08:21→17:09)
[2018-06-23] MEDS: LACTULOSE SYRUP 20 GM/30 ML UDC PO SCH ×2 (09:18→17:09)
[2018-06-23] MEDS: RIFAXIMIN 550 MG TABLET PO SCH ×2 (09:18→17:09)
--- NOTE | 2018-06-23 15:23 | Progress Note ---
DATE: June 23, 2018 INTERNAL MEDICINE PROGRESS NOTE SUBJECTIVE: The patient is doing well. No significant complaints. Patient is here for tailbone pain after a fall. PHYSICAL EXAMINATION VITAL SIGNS: Blood pressure 134/63. Temperature 96.9. Heart rate 77 per minute. Respiratory rate 20 per minute. Oxygen saturation is 100%. HEART: Regular rhythm. Normal S1, S2 sounds. LUNGS: Clear bilaterally. ABDOMEN: Soft. EXTREMITIES: No evidence of cyanosis, edema or trauma. LABS: On the BMP, sodium 140, potassium 3.8, chloride 108, CO2 20, BUN 48, creatinine 3.40. Glucose 77. On the CBC, white blood count 3.50, hemoglobin 7.7, hematocrit 21.8, platelet count 92,000. PT is 25.2, INR 2.48, PTT 46.5. AST 78, ALT 32, total bilirubin 4.6, alkaline phosphatase 159. ASSESSMENT 1. Chronic renal insufficiency, stage 4, secondary to diabetes mellitus. 2. Diabetes mellitus, type 2, with end-stage renal disease. 3. Hypothyroidism. 4. Cirrhosis of the liver. 5. Anemia of chronic disease. 6. 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 7. Elevated liver function tests most likely secondary to cirrhosis of liver. PLAN OF TREATMENT 1. Continue monitoring blood sugar a.c. and nightly. 2. Continue diabetic and renal diet. 3. Continue sevelamer 800 mg t.i.d. with meals. 4. Levothyroxine 50 mcg daily for hypothyroidism. 5. Flomax 0.4 mg daily for benign prostatic hypertrophy. 6. Continue furosemide 40 mg daily. 7. Lactulose 30 grams twice a day because of the hyperammonemia. 8. Continue sodium bicarbonate 350 mg twice a day. 9. Finasteride 5 mg daily. 10. Xifaxan 550 mg twice a day. 11. Ceftriaxone 1 gram IV daily. 12. Tentative discharge for tomorrow. Job#: [id number]
[2018-06-23] MEDS: FINASTERIDE 5 MG TAB PO SCH (20:39)
[2018-06-23] MEDS: TAMSULOSIN HCL 0.4 MG CAP PO SCH (20:39)
[2018-06-23] MEDS: CEFTRIAXONE SOD 1 GM VIAL IV SCH (20:39)
[2018-06-24] VITALS (7 sets, daily range): BP systolic 107–135; BP diastolic 54–70
[2018-06-24 05:21] LABS: BASOPHILS % 0.6 % (0.0-1.0); EOSINOPHILS # (AUTO) 0.1 (0.0-0.4); EOSINOPHILS % 1.9 % (0.0-6.0); HEMATOCRIT 24.9 % (38.2-49.6); HEMOGLOBIN 8.5 g/dL (14.0-18.0); LYMPHOCYTES # (AUTO) 1.8 (1.0-3.2); LYMPHOCYTES % 37.2 % (18.0-39.1); MEAN CORPUSCULAR HEMOGLOBIN 36.6 pg (28-32); MEAN CORPUSCULAR HGB CONC 34.1 g/dL (31-35); MEAN CORPUSCULAR VOLUME 107.3 fL (81-99); MONOCYTES # (AUTO) 0.4 (0.2-0.8); MONOCYTES % 9.4 % (4.4-11.3); NEUTROPHILS # (AUTO) 2.4 (2.1-6.9); NEUTROPHILS % 50.7 % (38.7-80.0); PLATELET COUNT 104 x10e3/uL (140-360); RED BLOOD COUNT 2.32 x10e6/uL (4.3-5.7)
[2018-06-24 05:45] LABS: ALBUMIN 2.3 g/dL (3.5-5.0); ALBUMIN/GLOBULIN RATIO 0.8 (0.8-2.0); ANION GAP 11.5 mmol/L (8-16); CALCIUM 7.9 mg/dL (8.4-10.2); CREATININE, SERUM 3.34 mg/dL (0.72-1.25); POTASSIUM 3.5 mmol/L (3.5-5.1)
[2018-06-24] MEDS: LEVOTHYROXINE SODIUM 50 MCG TAB PO SCH (05:46)
[2018-06-24] MEDS: FUROSEMIDE 40 MG TAB PO SCH (05:46)
[2018-06-24] MEDS: SODIUM BICARBONATE 650 MG TAB PO SCH ×2 (05:46→17:30)
[2018-06-24] MEDS: INSULIN REGULAR, HUMAN 100 UNIT/1 ML 3ML VIAL SQ SCH ×4 (07:30→21:29)
[2018-06-24] MEDS: SEVELAMER CARBONATE 800 MG TAB PO SCH ×3 (08:00→17:00)
[2018-06-24] MEDS: LACTULOSE SYRUP 20 GM/30 ML UDC PO SCH ×2 (08:00→17:00)
[2018-06-24] MEDS: RIFAXIMIN 550 MG TABLET PO SCH ×2 (08:30→17:00)
--- NOTE | 2018-06-24 10:22 | Progress Note ---
DATE: June 24, 2018 Mr. Tran is an 83-year-old man with a history of chronic kidney disease, stage 4-5, who has not been started on dialysis. Apparently, history of liver cirrhosis, diabetes, type 2, hypertension, hypothyroidism, BPH, came to the emergency room feeling weak and having difficulty walking. Ultrasound showed a liver mass. The plan is that the patient is going to go for abdominal MRI, liver MRI today. PHYSICAL EXAMINATION GENERAL: He is awake and alert. He is feeling better. VITALS: Temperature is 96.4, blood pressure 119/70. HEART: Regular rate. LUNGS: Clear to auscultation. ABDOMEN: Soft. BLOOD WORK: Potassium 3.5, creatinine 3.34, glucose 102. White count 4.7, hemoglobin 8.5, hematocrit 24.9. Liver ultrasound done shows cirrhotic liver with ascites, a 2.5 cm hypoechoic liver mass and cholelithiasis. ASSESSMENT AND PLAN 1. Weakness. 2. Diabetes, type 2 with chronic kidney disease, stage 4-5. 3. Chronic kidney disease, stage 4-5. 4. Liver cirrhosis with ascites. 5. Anemia secondary to chronic kidney disease. 6. Hypothyroidism. 7. BPH. 8. Cholelithiasis. 9. Liver mass. PLAN: At the present time, the patient is going to go for an MRI of the liver without contrast. Cytology Technologist has already cleared him. He is not going to start him on dialysis. He is going to let his head librarian decide on when he needs to be started on hemodialysis. Once we have the MRI results, will discuss further treatment options depending on the results. All of this was discussed with the patient and family at bedside. All questions were answered to satisfaction. Job#: [id number] OG
--- NOTE | 2018-06-24 16:06 | Diagnostic Imaging Report ---
EXAM: MRI of the abdomen with and without contrast. INDICATION: Liver lesion. COMPARISON: Right upper quadrant ultrasound dated 06/22/2018. TECHNIQUE: Multiplanar and multisequence imaging was performed of the abdomen without administration of intravenous contrast. DISCUSSION: LOWER THORAX: Unremarkable. HEPATOBILIARY: Nodular hepatic contour, consistent with cirrhotic changes. No biliary ductal dilation. GALLBLADDER: Contracted, limiting evaluation. SPLEEN: Splenomegaly measuring 14.3 cm. 1.7 cm mildly T2 hyperintense splenic lesion (series 10, image 11), could represent a hemangioma. PANCREAS: No focal masses or ductal dilatation. ADRENALS: 3.2 x 2.6 cm left adrenal nodule. No right adrenal nodule. KIDNEYS/URETERS: Kidneys are grossly unremarkable. No hydronephrosis. GI TRACT: Visualized bowel loops are unremarkable. No evidence of bowel obstruction. Hiatal hernia. LYMPH NODES: No lymphadenopathy. VESSELS: Limited evaluation without intravenous contrast. No abdominal aortic aneurysm. Atherosclerotic changes. PERITONEUM / RETROPERITONEUM: No free air. Small amount of ascites. BONES: Unremarkable. SOFT TISSUES: Unremarkable. IMPRESSION: 1. Cirrhotic liver with signs of portal hypertension. 2. No definite T2 hyperintense hepatic lesion visualized. However, the study is limited for evaluation of liver lesions without intravenous contrast. 3. 3.2 cm left adrenal lesion. Adrenal mass protocol CT can be obtained for characterization. Signed by: Dr. Bahman Ramirez MD on 06/24/2018 4:03 PM
[2018-06-24] MEDS: FINASTERIDE 5 MG TAB PO SCH (20:00)
[2018-06-24] MEDS: TAMSULOSIN HCL 0.4 MG CAP PO SCH (20:00)
[2018-06-24] MEDS: CEFTRIAXONE SOD 1 GM VIAL IV SCH (21:43)
[2018-06-25 02:13] VITALS: BP 128/59
[2018-06-25] MEDS: FUROSEMIDE 40 MG TAB PO SCH (05:46)
[2018-06-25] MEDS: LEVOTHYROXINE SODIUM 50 MCG TAB PO SCH (05:46)
[2018-06-25] MEDS: SODIUM BICARBONATE 650 MG TAB PO SCH (05:46)
[2018-06-25 06:34] VITALS: BP 103/55
[2018-06-25 07:30] VITALS: BP 103/55
[2018-06-25] MEDS: INSULIN REGULAR, HUMAN 100 UNIT/1 ML 3ML VIAL SQ SCH (07:30)
[2018-06-25 08:00] VITALS: BP 139/63
[2018-06-25] MEDS: RIFAXIMIN 550 MG TABLET PO SCH (08:00)
[2018-06-25] MEDS: SEVELAMER CARBONATE 800 MG TAB PO SCH ×2 (08:00→12:15)
[2018-06-25] MEDS: LACTULOSE SYRUP 20 GM/30 ML UDC PO SCH (08:00)
[2018-06-25 12:00] VITALS: BP 126/58
--- NOTE | 2018-06-25 13:49 | Discharge Summary ---
HISTORY: Mr. Tran is an 83-year-old man with chronic kidney disease, liver cirrhosis, diabetes type 2, hypertension, hypothyroidism and BPH, who came to the emergency room complaining of weakness and difficulty walking. HOSPITAL COURSE: Ultrasound of the liver showed a mass. Patient went for an MRI yesterday that is not very conclusive regarding the mas, but they found another mass in the adrenal area. We discussed with GI if patient can be worked up as an outpatient for that. PHYSICAL EXAMINATION GENERAL: He is awake and alert. He wants to go home. VITAL SIGNS: Temperature is 97.7. Blood pressure 103/55. HEART: Regular rate. LUNGS: Poor inspiratory effort. ABDOMEN: Distended and soft. LAB WORK: White count is 4.70, hemoglobin is 8.5, hematocrit is 24.9. Glucose 117. Blood cultures came back negative. CHEST X-RAY: Shows no acute findings. HEAD CT: Shows no acute posttraumatic intracranial hemorrhage. DISCHARGE DIAGNOSES 1. Weakness. 2. Diabetes type 2 with chronic kidney disease stage 4. 3. Chronic kidney disease stage 4. 4. Liver cirrhosis with ascites. 5. Anemia secondary to chronic kidney disease. 6. Hypothyroidism. 7. Benign prostatic hypertrophy. 8. Liver mass. 9. Cholelithiasis. PLAN: We discussed with GI if patient can be discharged home and be followed up and worked up as an outpatient. MRI was not conclusive regarding the liver mass that was seen in the ultrasound because PATIENT CANNOT RECEIVE CONTRAST DUE TO RENAL FAILURE. There is also apparently a mass in the adrenal gland. So, the plan at the present time if patient is cleared by GI is to discharge him home, continue home medications, have him follow up with rack puncher and with GI for further treatment of his conditions, have him follow up with his PCP in 1 week. He is to call me or come back to the emergency room if any recurrent problem. Please see home medication reconciliation list. All this was discussed with patient and family at bedside. All questions were answered to satisfaction. IDA CEBALLOS MD Job#: [id number] EV
== END 2018-06-25 14:11 | disposition home or self-care (01) | DRG 682 ==
LOC: ER 12:10 → ERHOLD 16:11 → MED/SURG3 19:15
PROVIDERS: ADMIT Internal Medicine; ATTEND Internal Medicine
DX: I12.0 Hypertensive chronic kidney disease with stage 5 chronic kidney disease or end stage renal disease (principal); N18.6 End stage renal disease; N17.9 Acute kidney failure, unspecified; D61.818 Other pancytopenia; D68.4 Acquired coagulation factor deficiency; E11.22 Type 2 diabetes mellitus with diabetic chronic kidney disease; D50.9 Iron deficiency anemia, unspecified; K72.90 Hepatic failure, unspecified without coma; K74.60 Unspecified cirrhosis of liver; K80.20 Calculus of gallbladder without cholecystitis without obstruction; R16.0 Hepatomegaly, not elsewhere classified; N40.0 Benign prostatic hyperplasia without lower urinary tract symptoms; D63.1 Anemia in chronic kidney disease; D73.1 Hypersplenism; E87.6 Hypokalemia; E11.21 Type 2 diabetes mellitus with diabetic nephropathy; E78.5 Hyperlipidemia, unspecified; E27.9 Disorder of adrenal gland, unspecified; Z79.4 Long term (current) use of insulin
CPT/HCPCS: 36415; 70450; 71046; 72170; 74181; 76705; 80048; 80053; 80061; 81001; 82085; 82105; 82140; 82378; 82550; 82553; 82607; 82728; 82746; 82948; 83540; 83605; 83735; 83874; 83880; 83921; 84100; 84466; 84484; 85025; 85610; 85730; 87040; 93005; 97139; 99285; J0696; J7030; Q4081

== ENCOUNTER 2018-07-15 15:45 | Inpatient (IN) | payer MEDICARE ==
[~2018-07-15] VITALS: Ht 167.6 cm; Wt 69.5 kg
[~2018-07-15 15:45] MED LIST changes: +FINASTERIDE5 MG PO; +TARON FORTE CA1 EACH PO
[2018-07-15 16:51] LABS: BILIRUBIN,URINE NEGATIVE (NEGATIVE); CLARITY,URINE SL CLOUDY (CLEAR); COLOR,URINE YELLOW (YELLOW); KETONES,URINE NEGATIVE (NEGATIVE); LEUKOCYTE ESTERASE ,URINE NEGATIVE (NEGATIVE); NITRITE,URINE NEGATIVE (NEGATIVE); PROTEIN,URINE DIPSTICK TRACE (NEGATIVE); URINE UROBILINOGEN 0.2 mg/dL (0.2 - 1)
[2018-07-15 17:27] LABS: RBC,URINE 0-5 /HPF (0-5); WBC,URINE (MAN) 0-5 /HPF (0-5)
[2018-07-15 17:28] LABS: EPITHELIAL CELLS,URINE FEW /LPF
--- NOTE | 2018-07-15 17:34 | Diagnostic Imaging Report ---
Examination: CT head without contrast Clinical Indication: Confusion. G. Leg weakness. Technique: Transaxial noncontrast images from the skull base through the vertex were obtained. Sagittal and coronal reformatted images were done. Dose modulation, iterative reconstruction, and/or weight based adjustment of the mA/kV was utilized to reduce the radiation dose to as low as reasonably achievable. Comparison: Head CT performed June 20, 2018. Findings: Scalp: No abnormalities. Bones: Intact. No fractures. No blastic or lytic lesions. Brain sulci: Appropriate for patient's age. Ventricles: Normal in size and configuration. No hydrocephalus. . Extra-axial space: No abnormalities. Parenchyma: There are mild confluent areas of low-attenuation within subcortical and periventricular white matter, nonspecific, but could represent microvascular ischemic disease. No masses, hemorrhage, or acute or chronic cortical based vascular insults. Suprasellar region: No abnormalities. Craniocervical junction: The foramen magnum is patent. No Chiari one malformation. Incidental findings: Atherosclerotic calcification of the cavernous and supraclinoid internal carotid arteries. Impression: 1. No new acute intracranial finding when compared to June 20, [address] 2. Unchanged mild chronic microvascular ischemic change. Signed by: Dr. Grace Arteaga M.D. on 07/15/2018 5:30 PM
--- NOTE | 2018-07-15 17:41 | Diagnostic Imaging Report ---
EXAMINATION: CHEST SINGLE (PORTABLE) INDICATION: Lethargy. \S\ERMD ORDER \S\Y COMPARISON: 01/14/2018 FINDINGS: AP view TUBES and LINES: None. LUNGS: Lungs are well inflated. Left upper lobe linear atelectasis/scarring. Mildly prominent interstitial lung markings. Again seen left upper lobe nodular density, likely calcified granuloma. PLEURA: No significant pleural effusion or pneumothorax. HEART AND MEDIASTINUM: The cardiomediastinal silhouette is unremarkable. BONES AND SOFT TISSUES: No acute osseous lesion. Soft tissues are unremarkable. UPPER ABDOMEN: No free air under the diaphragm. IMPRESSION: Mildly prominent interstitial lung markings, could be chronic or represent mild interstitial edema. Left upper lobe linear atelectasis/scarring. Signed by: Dr. Bahman Ramirez MD on 07/15/2018 5:37 PM
[2018-07-15 19:28] LABS: BASOPHILS % 0.2 % (0.0-1.0); EOSINOPHILS # (AUTO) 0.1 (0.0-0.4); EOSINOPHILS % 1.2 % (0.0-6.0); HEMOGLOBIN 9.4 g/dL (14.0-18.0); LYMPHOCYTES # (AUTO) 1.7 (1.0-3.2); LYMPHOCYTES % 34.6 % (18.0-39.1); MEAN CORPUSCULAR HEMOGLOBIN 36.7 pg (28-32); MEAN CORPUSCULAR HGB CONC 34.8 g/dL (31-35); MEAN CORPUSCULAR VOLUME 105.5 fL (81-99); MONOCYTES # (AUTO) 0.6 (0.2-0.8); MONOCYTES % 11.6 % (4.4-11.3); NEUTROPHILS # (AUTO) 2.6 (2.1-6.9); NEUTROPHILS % 52.2 % (38.7-80.0); PLATELET COUNT 116 x10e3/uL (140-360); RED BLOOD COUNT 2.56 x10e6/uL (4.3-5.7); RED CELL DISTRIBUTION WIDTH 13.8 % (11.7-14.4)
[2018-07-15] MEDS ORDERED: LACTULOSE20 GM/30 M PO (19:36)
[2018-07-15] MEDS ORDERED: FLOMAX0.4 MG PO (19:36)
[2018-07-15 19:39] LABS: INR 2.16; PROTHROMBIN TIME 22.6 seconds (11.9-14.5)
[2018-07-15 19:40] LABS: PARTIAL THROMBOPLASTIN TIME 45.1 seconds (23.8-35.5)
[2018-07-15 19:49] LABS: ALBUMIN/GLOBULIN RATIO 0.8 (0.8-2.0); ANION GAP 19.8 mmol/L (8-16); CALCIUM 8.1 mg/dL (8.4-10.2); CREATININE, SERUM 3.58 mg/dL (0.72-1.25)
[2018-07-15 19:51] LABS: POTASSIUM 2.8 mmol/L (3.5-5.1)
[2018-07-15] MEDS ORDERED: POTASSIUM CHLORIDE 20 MEQ TAB CR PO NR (19:51)
[2018-07-15 19:56] LABS: CREATINE KINASE MB 6.6 ng/mL (0-5.0)
[2018-07-15] MEDS ORDERED: LACTULOSE SYRUP 20 GM/30 ML UDC PO NR (20:30)
[2018-07-15] MEDS ORDERED: LACTULOSE SYRUP 20 GM/30 ML UDC ONE ×2 (20:40→20:41)
[2018-07-15] MEDS ORDERED: SODIUM CHLORIDE FLUSH 10 ML SYR INJ PRN (20:45)
[2018-07-15] MEDS ORDERED: ONDANSETRON HCL INJ 2 MG/ML VIAL IV PRN (20:45)
[2018-07-15] MEDS ORDERED: MORPHINE SULFATE 2 MG/ML SYR IV PRN (20:45)
[2018-07-15] MEDS: LACTULOSE SYRUP 20 GM/30 ML UDC PO SCH (22:53)
[2018-07-15 23:02] VITALS: BP 152/65
[2018-07-15 23:05] VITALS: BP 152/65
[2018-07-15 23:55] VITALS: BP 152/65
[2018-07-16 04:54] VITALS: BP 127/60
[2018-07-16] MEDS: LACTULOSE SYRUP 20 GM/30 ML UDC PO SCH ×4 (05:05→23:57)
[2018-07-16 05:09] LABS: BASOPHILS % 0.3 % (0.0-1.0); EOSINOPHILS # (AUTO) 0.1 (0.0-0.4); EOSINOPHILS % 1.4 % (0.0-6.0); HEMATOCRIT 23.1 % (38.2-49.6); HEMOGLOBIN 8.1 g/dL (14.0-18.0); LYMPHOCYTES # (AUTO) 1.2 (1.0-3.2); LYMPHOCYTES % 33.8 % (18.0-39.1); MEAN CORPUSCULAR HEMOGLOBIN 36.5 pg (28-32); MEAN CORPUSCULAR HGB CONC 35.1 g/dL (31-35); MEAN CORPUSCULAR VOLUME 104.1 fL (81-99); MONOCYTES # (AUTO) 0.5 (0.2-0.8); MONOCYTES % 12.6 % (4.4-11.3); NEUTROPHILS # (AUTO) 1.9 (2.1-6.9); NEUTROPHILS % 51.6 % (38.7-80.0); PLATELET COUNT 89 x10e3/uL (140-360); RED BLOOD COUNT 2.22 x10e6/uL (4.3-5.7); RED CELL DISTRIBUTION WIDTH 13.8 % (11.7-14.4)
[2018-07-16 05:27] LABS: ALBUMIN 2.4 g/dL (3.5-5.0); ALBUMIN/GLOBULIN RATIO 0.8 (0.8-2.0); CALCIUM 7.5 mg/dL (8.4-10.2); CREATININE, SERUM 3.5 mg/dL (0.72-1.25)
[2018-07-16 05:40] LABS: CREATINE KINASE MB 4.2 ng/mL (0-5.0)
--- NOTE | 2018-07-16 07:34 | Diagnostic Imaging Report ---
Examination: Single AP view of the chest. COMPARISON: 07/15/2018 INDICATION: Altered mental status DISCUSSION: The lungs remain well-inflated with focal linear scar in the left upper lung. Mild prominence of the pulmonary interstitium is unchanged. No new consolidation, pleural effusion, or pneumothorax. Stable cardiomediastinal contour. No acute osseous abnormality. Probable small hiatal hernia. IMPRESSION: No acute cardiopulmonary abnormality. Stable appearance of chest relative to 07/15/2018. Persistent findings include probable chronic age-related fibrotic changes with focal left upper lung linear fibrosis. Signed by: Dr. Jan Rosas M.D. on 07/16/2018 7:31 AM
[2018-07-16 08:13] VITALS: BP 132/61
[2018-07-16] MEDS: TAMSULOSIN HCL 0.4 MG CAP PO SCH (09:00)
[2018-07-16] MEDS: SEVELAMER CARBONATE 800 MG TAB PO SCH ×3 (09:00→20:23)
[2018-07-16] MEDS: SODIUM BICARBONATE 650 MG TAB PO SCH ×2 (09:00→16:32)
[2018-07-16] MEDS ORDERED: LEVOTHYROXINE SODIUM 50 MCG TAB PO SCH (09:00)
[2018-07-16] MEDS ORDERED: POTASSIUM CHLORIDE 20 MEQ TAB CR PO STA (09:02)
[2018-07-16] MEDS ORDERED: ACETAMINOPHEN 325 MG TAB PO PRN (09:30)
[2018-07-16] MEDS ORDERED: HYDRALAZINE HCL 20 MG/ML VIAL IV PRN (09:30)
[2018-07-16] MEDS ORDERED: ACETAMINOPHEN/CODEINE 300MG - 30MG TAB PO PRN (09:45)
[2018-07-16] MEDS ORDERED: MORPHINE SULFATE INJ 4 MG/ML INJ IV PRN (09:45)
[2018-07-16 10:46] VITALS: BP 132/61
[2018-07-16 14:30] LABS: CREATINE KINASE MB 5.4 ng/mL (0-5.0)
[2018-07-16 16:12] VITALS: BP 140/64
[2018-07-16] MEDS: OYST-CAL-D 500MG TABLET PO SCH (16:32)
[2018-07-16] MEDS: FAMOTIDINE 20 MG/2 ML VIAL IV SCH (16:32)
--- NOTE | 2018-07-16 18:05 | Diagnostic Imaging Report ---
EXAM: Complete Abdominal Ultrasound INDICATION: \S\?ASCITES \[id number] \S\[id number] COMPARISON: Right upper quadrant ultrasound dated 06/22/2018 , abdominal MRI dated 06/24/2018 TECHNIQUE: Transverse and longitudinal images of the upper abdomen were obtained. FINDINGS: Liver: Size: 16.5 cm in the right midclavicular line, normal Appearance: Normal echogenicity, nodular contour Mass: 2.5 x 2.1 x 2.1 cm right hepatic lobe isoechoic or mildly hypoechoic lesion. Spleen: Size: 13.1 cm in length, mildly enlarged Echogenicity: Normal Mass: No focal masses Gallbladder: Stones/Sludge: Small gallstones and sludge. Wall: 0.3 cm Appearance: No pericholecystic fluid or hydrops. Sonographic Mcleod's Sign: Negative Bile Ducts: Intrahepatic Ducts: No dilatation Extrahepatic Ducts: Common bile duct measures 0.6 cm, no dilatation Pancreas: Visualized pancreas is unremarkable. Right Kidney: Size: 8 cm Echogenicity: Normal Parenchymal thickness: Normal Collecting System: No hydronephrosis Stone: None Cyst/Mass: None Left Kidney: Size: 8.8 cm Echogenicity: Normal Parenchymal thickness: Normal Collecting System: No hydronephrosis Stone: None Cyst/Mass: None Vessels: Aorta: Not well visualized, especially the proximal and mid area. Inferior Vena Cava: Not well seen due to bowel gas. Main Portal Vein: 1 cm, normal size with hepatopetal flow. Free Fluid: Trace ascites or pleural effusion IMPRESSION: 1. Cirrhotic changes of liver with signs of portal hypertension (splenomegaly and mild ascites). 2. Cholelithiasis without evidence of cholecystitis. 3. Unchanged indeterminate mildly hypoechoic 2.5 cm right hepatic lobe lesion. If the patient cannot get intravenous contrast for liver protocol MRI, attention on follow-up examination in 6 months is recommended. Signed by: Dr. Bahman Ramirez MD on 07/16/2018 6:01 PM
[2018-07-16 20:00] VITALS: BP 152/67
[2018-07-16] MEDS: FINASTERIDE 5 MG TAB PO SCH (20:23)
--- NOTE | 2018-07-16 22:59 | Consultation ---
DATE OF CONSULTATION: July 16, 2018 RENAL CONSULTATION ADMITTING PHYSICIAN: Dr. Padilla REASON FOR CONSULTATION: Chronic kidney disease. HISTORY OF PRESENT ILLNESS: An 83-year-old male with history of stage-5 chronic kidney disease, secondary diabetic nephropathy, and cirrhosis, was brought to [facility] for weakness and vomiting. Patient is a poor historian and history was taken from his family members, who are at bedside. Patient was doing well until 07/14/2018, when he developed some loose stools, weakness, and was up most of the evening sick. Patient seemed to be better on 07/15/2018. However, he became nauseous and vomited twice, and patient was brought to the hospital. Patient was found to have renal failure, hypokalemia, and nephrology consultation was called. Patient normally follows with Dr. Kemp in the [facility]. Patient is much improved and his mental status at baseline according to family members. REVIEW OF SYSTEMS: As above. All other systems negative. PAST MEDICAL HISTORY 1. Chronic kidney disease, stage 5, secondary to diabetic nephropathy. 2. Diabetes. 3. Hypertension. 4. Cirrhosis. 5. Hypothyroidism. 6. BPH. PAST SURGICAL HISTORY: Left upper extremity AV fistula. SOCIAL HISTORY: Stopped drinking 20 years ago, stopped tobacco 20 years ago. No IV drugs. FAMILY HISTORY: No family history of kidney disease. ALLERGIES: NO KNOWN DRUG ALLERGIES. CURRENT MEDICATIONS: See list. PHYSICAL EXAM VITAL SIGNS: Blood pressure 140/64, pulse 69, respiratory rate 20, temperature 96.9. GENERAL: No apparent distress. HEENT: Oropharynx clear. No scleral icterus. No peripheral edema. NECK: Supple. No elevation of jugular venous pressure. No lymphadenopathy. CHEST: Clear to auscultation anteriorly bilaterally. CARDIOVASCULAR: Regular rhythm. No murmurs or rubs. ABDOMEN: Soft. Positive bowel sounds. No tenderness, no rebound. EXTREMITIES: No edema, no clubbing, no cyanosis. SKIN: Warm. LABS: Sodium 136, potassium 3, chloride 100, CO2 21, BUN 50, creatinine 3.50, total bilirubin 4.7, alk phos 153. White count 3.64, hemoglobin 8.1, hematocrit 23.1, platelets 89,000. IMAGING: Chest x-ray, no acute cardiopulmonary abnormalities. Stable appearance of the chest. Persistent findings of chronic fibrotic changes with focal left upper lung linear fibrosis. Abdominal ultrasound showed cirrhotic changes of the liver, unchanged indeterminate mildly hypoechoic 2.5-cm right hepatic lobe lesion. ASSESSMENT AND PLAN 1. Stage-5 chronic kidney disease. Patient is approximately at baseline. Will not do any further workup. He is to follow up with his outpatient costume seamstress, who is following him closely. 2. Hypokalemia due to diarrhea and poor intake, replace. Will check again in the morning. 3. Euvolemic on exam. 4. Anemia secondary to chronic kidney disease. Will check iron stores, transfuse if hemoglobin less than 7. Consider Epogen as an outpatient. 5. Cirrhosis. Patient compensated. Job#: [id number] CQ
[2018-07-17] VITALS (7 sets, daily range): BP systolic 133–161; BP diastolic 60–85
[2018-07-17 03:24] LABS: BASOPHILS % 0.3 % (0.0-1.0); EOSINOPHILS # (AUTO) 0.1 (0.0-0.4); EOSINOPHILS % 2.1 % (0.0-6.0); HEMATOCRIT 22.3 % (38.2-49.6); HEMOGLOBIN 7.9 g/dL (14.0-18.0); LYMPHOCYTES # (AUTO) 1.5 (1.0-3.2); LYMPHOCYTES % 43.4 % (18.0-39.1); MEAN CORPUSCULAR HEMOGLOBIN 36.9 pg (28-32); MEAN CORPUSCULAR HGB CONC 35.4 g/dL (31-35); MEAN CORPUSCULAR VOLUME 104.2 fL (81-99); MONOCYTES # (AUTO) 0.4 (0.2-0.8); MONOCYTES % 11.4 % (4.4-11.3); NEUTROPHILS # (AUTO) 1.4 (2.1-6.9); NEUTROPHILS % 42.5 % (38.7-80.0); PLATELET COUNT 91 x10e3/uL (140-360); RED BLOOD COUNT 2.14 x10e6/uL (4.3-5.7)
[2018-07-17 03:44] LABS: ALBUMIN 2.4 g/dL (3.5-5.0); ANION GAP 16.3 mmol/L (8-16); BILIRUBIN,DIRECT 3.2 mg/dL (0.0-0.5); CALCIUM 7.7 mg/dL (8.4-10.2); CREATININE, SERUM 4.13 mg/dL (0.72-1.25); MAGNESIUM 1.6 MG/DL (1.3-2.1); POTASSIUM 3.3 mmol/L (3.5-5.1)
[2018-07-17 03:54] LABS: B-TYPE NATRIURETIC PEPTIDE2 216.2 pg/mL (0-100)
[2018-07-17 04:07] LABS: FERRITIN 234.59 ng/mL (21.81-274.66); FREE T4 (FREE THYROXINE) 1.2 ng/dL (0.9-1.8); THYROID STIMULATING HORMONE 3.34 uIU/mL (0.350-4.940)
[2018-07-17 04:40] LABS: FOLATE 19.7 ng/mL (7.0-15.4)
[2018-07-17] MEDS: LEVOTHYROXINE SODIUM 50 MCG TAB PO SCH (05:16)
[2018-07-17] MEDS: LACTULOSE SYRUP 20 GM/30 ML UDC PO SCH ×3 (05:16→17:30)
[2018-07-17] MEDS ORDERED: PHYTONADIONE 10 MG/ML AMP SQ ONE ×2 (07:00→10:00)
--- NOTE | 2018-07-17 07:13 | Consultation ---
DATE OF CONSULTATION: July 17, 2018 An 83 year old who has diabetes with cirrhosis from a past medical history of alcohol use, presented to the hospital because apparently he had an episode of nausea and vomiting at home, and followed by some confusion. Family reported there is no hematemesis along with that problem. Apparently, he also denied any abdominal pain or fever along with this problem. His workup so far revealed the PT is 22, INR 2.16 and PTT 45. He has also renal insufficiency with a BUN of 49 and creatinine of 4.13. His liver enzymes are mildly elevated with AST of 94. He is pancytopenic with a hemoglobin of 7.9 and platelet count of 91,000. He also has coagulopathy. The ultrasound of the abdomen did show cirrhosis, and a 2.5 cm right hepatic lobe lesion. Supposedly, it is unchanged. He did have an abdominal MRI in May, which again at that time showed there is no definite lesion that was seen. His other medical problems are significant for history of cirrhosis, past history of alcohol abuse. Apparently, quit about 20 years or so ago. He also has a history of renal disease, diabetes, hypertension, hypothyroidism, BPH. ALLERGIES: NONE. CURRENT MEDICATIONS: Include levothyroxine, lactulose, Renvela, Proscar, Pepcid. SOCIAL HISTORY: Past alcohol use, but none in the last 20 years. FAMILY HISTORY: Noncontributory. REVIEW OF SYSTEMS: At this point, he denies any chest pain. Denies any shortness of breath. Denies any dysphagia or odynophagia. Denies any dysuria or hematuria, or any kind of GI bleed at this point, or syncopal episode. PHYSICAL EXAMINATION GENERAL: The patient is awake, alert and appears to be stable and not in acute distress at this point. VITAL SIGNS: Afebrile currently. HEENT: Normocephalic and atraumatic. Sclerae are anicteric. NECK: Supple. HEART: Regular. ABDOMEN: Soft. There is no distention at this point. It is nontender. EXTREMITIES: No clubbing. LAB VALUES: PT 22.6, INR 2.16 and PTT 45. BUN of 49 and creatinine of 4.13. Iron of 195. Bilirubin 4.2, direct 3.2, AST of 94. WBC of 3.34, hemoglobin 7.9 and platelet count of 91,000. IMPRESSION 1. Hepatic encephalopathy: Apparently, the patient is already back to normal. Ammonia level was 125 on admission, but currently the patient is awake and alert. Ammonia level today is still 231. 2. Nausea and vomiting, resolved. 3. Pancytopenia: It is noncontributory at this point. 4. Coagulopathy. RECOMMENDATIONS: Add Xifaxan. Continue current care. Follow labs. Give some vitamin K. Job#: [id number] RI cc:MD EMMA PALMA
[2018-07-17] MEDS ORDERED: FUROSEMIDE INJ 10 MG/ML 2 ML VIAL IV ONE ×2 (07:15→17:15)
[2018-07-17] MEDS ORDERED: POTASSIUM CHLORIDE 20 MEQ TAB CR PO ONE ×2 (08:00→12:30)
[2018-07-17] MEDS: FAMOTIDINE 20 MG/2 ML VIAL IV SCH ×2 (08:05→17:30)
[2018-07-17] MEDS: TAMSULOSIN HCL 0.4 MG CAP PO SCH (08:05)
[2018-07-17] MEDS: SEVELAMER CARBONATE 800 MG TAB PO SCH ×3 (08:05→17:30)
[2018-07-17] MEDS: OYST-CAL-D 500MG TABLET PO SCH ×2 (08:05→17:30)
[2018-07-17] MEDS: SODIUM BICARBONATE 650 MG TAB PO SCH ×2 (08:06→17:30)
[2018-07-17] MEDS: RIFAXIMIN 550 MG TABLET PO SCH ×2 (08:06→17:30)
[2018-07-17] MEDS ORDERED: DEXAMETHASONE SOD PHOS 10 MG/1 ML VIAL IV ONE ×2 (09:00→14:30)
[2018-07-17] MEDS ORDERED: DIPHENHYDRAMINE HCL INJ 50 MG/ML VIAL IV ONE ×2 (09:00→14:30)
[2018-07-17] MEDS ORDERED: PHYTONADIONE 1 MG/0.5 ML AMP IM ONE (09:00)
[2018-07-17] MEDS ORDERED: SODIUM CHLORIDE 0.9% 250ML 250 ML IV ONE (10:00)
--- NOTE | 2018-07-17 10:18 | Consultation ---
DATE OF CONSULTATION: July 17, 2018 HISTORY OF PRESENT ILLNESS: H[age]old gentleman with past medical history including chronic kidney disease, liver cirrhosis, type 2 diabetes, hypertension, hypothyroidism and BPH. He is currently in hospital with dizziness, fall, fever, fatigue, lethargic and tiredness. He is also complaining of nausea and vomiting. No loose motion noted. At admission, patient's workup shows hemoglobin was 9.4, dropped to 7.9. Right now, the patient has elevated MCV. The patient also has pancytopenia. The patient's ultrasound of the abdomen showed cirrhotic liver changes with portal hypertension, splenomegaly, mild ascites. The patient also had hypoechoic right hepatic lobe lesions. The patient's kidney function was abnormal at admission. Creatinine was 4.13. The patient's anemia workup so far showed elevated ferritin, elevated B12 and folate. The patient's TSH was also normal. PAST MEDICAL HISTORY: Includes chronic kidney disease, cirrhosis, diabetes, hypertension, hypothyroidism, BPH. ALLERGIES: PER NURSING LIST. MEDICATIONS: List reviewed. SOCIAL HISTORY: No current smoking, alcohol or drugs. The patient had history of alcohol use in the past. FAMILY HISTORY: Noncontributory. REVIEW OF SYSTEMS: Twelve-point reviewed, as per the HPI. PHYSICAL EXAMINATION GENERAL: Alert, awake, communicative. HEENT: Normocephalic, atraumatic. Sclerae pink. Conjunctivae clear. NECK: Supple. CHEST: Clear to auscultation. CARDIOVASCULAR: Regular rate and rhythm. ABDOMEN: Soft. EXTREMITIES: No edema. LABS AND IMAGING: Reviewed. ASSESSMENT AND PLAN: The patient with history of multiple medical conditions, admitted in the hospital with history of fall, syncopal episode, dizziness. The patient also has coagulopathy, pancytopenia, anemia and renal insufficiency. The patient was admitted for hepatic encephalopathy. 1. Pancytopenia. The patient has chronic kidney disease with portal hypertension responsible for current pancytopenia. The patient also has elevated MCV with normal B12 and folate level. Other differential diagnoses include myelodysplastic syndrome. The patient has no active bleeding. Do not recommend any platelet transfusion. Hemoglobin went down to 7.9, consider to give 1 unit of packed RBC. Continue to monitor CBC very closely. Pancytopenia, likely etiology chronic liver disease, other differential myelodysplastic syndrome based on elevated MVC. We will do flow cytometry, peripheral blood. 2. Coagulopathy: Likely because of chronic liver disease. Recommend vitamin K treatment. 3. Chronic kidney disease, possible hepatorenal syndrome. Recommend nephrology follow. At this point, we will continue remaining care. We will follow the patient closely. Thank you Dr. Padilla for this consultation. Job#: [id number] GE
[2018-07-17] MEDS: EPOETIN ALFA 10000 UNIT/ML VIAL SC SCH (11:10)
[2018-07-17] MEDS ORDERED: SODIUM CHLORIDE 0.9% 250ML 250 ML ONE ×2 (13:25→21:58)
[2018-07-17] MEDS ORDERED: FUROSEMIDE INJ 10 MG/ML 2 ML VIAL IV PRN (17:15)
[2018-07-17] MEDS: FINASTERIDE 5 MG TAB PO SCH (21:50)
[2018-07-18] VITALS: BP 108/58
[2018-07-18] MEDS: LACTULOSE SYRUP 20 GM/30 ML UDC PO SCH ×5 (00:15→23:39)
[2018-07-18 04:00] VITALS: BP 133/60
[2018-07-18] MEDS: LEVOTHYROXINE SODIUM 50 MCG TAB PO SCH (04:56)
[2018-07-18 05:18] LABS: BASOPHILS % 0.2 % (0.0-1.0); HEMOGLOBIN 11.3 g/dL (14.0-18.0); LYMPHOCYTES % 16.4 % (18.0-39.1); MEAN CORPUSCULAR HEMOGLOBIN 35.3 pg (28-32); MEAN CORPUSCULAR HGB CONC 35.3 g/dL (31-35); MONOCYTES # (AUTO) 0.3 (0.2-0.8); MONOCYTES % 5.4 % (4.4-11.3); NEUTROPHILS # (AUTO) 4.7 (2.1-6.9); NEUTROPHILS % 77.3 % (38.7-80.0); PLATELET COUNT 106 x10e3/uL (140-360); RED CELL DISTRIBUTION WIDTH 16.9 % (11.7-14.4)
[2018-07-18 05:42] LABS: INR 2.08
[2018-07-18 05:43] LABS: PARTIAL THROMBOPLASTIN TIME 41.8 seconds (23.8-35.5)
[2018-07-18 05:48] LABS: ALBUMIN 2.7 g/dL (3.5-5.0); ALBUMIN/GLOBULIN RATIO 0.8 (0.8-2.0); ANION GAP 16.8 mmol/L (8-16); CALCIUM 8.3 mg/dL (8.4-10.2); CREATININE, SERUM 4.24 mg/dL (0.72-1.25); POTASSIUM 3.8 mmol/L (3.5-5.1)
[2018-07-18 08:00] VITALS: BP 153/74
[2018-07-18] MEDS: RIFAXIMIN 550 MG TABLET PO SCH ×2 (08:11→16:59)
[2018-07-18] MEDS: SODIUM BICARBONATE 650 MG TAB PO SCH ×2 (08:11→16:59)
[2018-07-18] MEDS: FAMOTIDINE 20 MG/2 ML VIAL IV SCH ×2 (08:11→16:59)
[2018-07-18] MEDS: OYST-CAL-D 500MG TABLET PO SCH ×2 (08:11→16:59)
[2018-07-18] MEDS: SEVELAMER CARBONATE 800 MG TAB PO SCH ×3 (08:11→17:00)
[2018-07-18] MEDS: TAMSULOSIN HCL 0.4 MG CAP PO SCH (08:11)
--- NOTE | 2018-07-18 09:25 | Progress Note ---
DATE: July 18, 2018 Patient seen and examined today. Patient appeared comfortable. Clinical, he is doing better. Received blood transfusion yesterday. Hemoglobin improved to 11.3. Patient has improved in his platelets and white cell count. No other event noted. PHYSICAL EXAMINATION GENERAL: Alert, awake, communicative. HEENT: Normocephalic, atraumatic. Sclerae pink. Conjunctivae clear. NECK: Supple. CHEST: Clear to auscultation. ABDOMEN: Soft. EXTREMITIES: No edema. LABS AND IMAGING: Reviewed. ASSESSMENT AND PLAN: Patient with history of multiple medical conditions. I am currently following for pancytopenia, improving; history of anemia, improved after transfusion. Workup so far consistent with anemia of chronic disease and also patient had pancytopenia because of the chronic renal disease. Clinical condition is improving. Flow cytometry of peripheral blood is pending. At current, we will continue remaining care. We will follow the patient closely. Job#: [id number]
[2018-07-18 12:00] VITALS: BP 157/66
[2018-07-18 16:00] VITALS: BP 134/66
[2018-07-18 19:58] VITALS: BP 132/58
[2018-07-18] MEDS: FINASTERIDE 5 MG TAB PO SCH (20:08)
[2018-07-19] VITALS: BP_SYST 135; BP_DIAS 64; BP_DIAS 76
[2018-07-19 04:00] VITALS: BP 170/74
[2018-07-19 05:10] LABS: BASOPHILS % 0.3 % (0.0-1.0); EOSINOPHILS # (AUTO) 0.1 (0.0-0.4); EOSINOPHILS % 0.9 % (0.0-6.0); HEMATOCRIT 34.6 % (38.2-49.6); LYMPHOCYTES # (AUTO) 2.2 (1.0-3.2); LYMPHOCYTES % 27.3 % (18.0-39.1); MEAN CORPUSCULAR HEMOGLOBIN 35.4 pg (28-32); MEAN CORPUSCULAR HGB CONC 34.7 g/dL (31-35); MEAN CORPUSCULAR VOLUME 102.1 fL (81-99); MONOCYTES # (AUTO) 0.8 (0.2-0.8); MONOCYTES % 9.9 % (4.4-11.3); NEUTROPHILS # (AUTO) 4.8 (2.1-6.9); NEUTROPHILS % 60.8 % (38.7-80.0); PLATELET COUNT 115 x10e3/uL (140-360); RED BLOOD COUNT 3.39 x10e6/uL (4.3-5.7); RED CELL DISTRIBUTION WIDTH 17.5 % (11.7-14.4)
[2018-07-19] MEDS: LACTULOSE SYRUP 20 GM/30 ML UDC PO SCH (05:18)
[2018-07-19] MEDS: LEVOTHYROXINE SODIUM 50 MCG TAB PO SCH (05:18)
[2018-07-19 05:42] LABS: ANION GAP 16.1 mmol/L (8-16); CALCIUM 8.3 mg/dL (8.4-10.2); CREATININE, SERUM 4.06 mg/dL (0.72-1.25); MAGNESIUM 2.1 MG/DL (1.3-2.1); POTASSIUM 3.1 mmol/L (3.5-5.1)
[2018-07-19 07:59] VITALS: BP 151/66
[2018-07-19] MEDS: SEVELAMER CARBONATE 800 MG TAB PO SCH (08:11)
[2018-07-19] MEDS ORDERED: POTASSIUM CHLORIDE 20 MEQ TAB CR PO ONE ×2 (09:00→10:00)
[2018-07-19] MEDS: RIFAXIMIN 550 MG TABLET PO SCH (09:13)
[2018-07-19] MEDS: OYST-CAL-D 500MG TABLET PO SCH (09:13)
[2018-07-19] MEDS: SODIUM BICARBONATE 650 MG TAB PO SCH (09:13)
[2018-07-19] MEDS: FAMOTIDINE 20 MG/2 ML VIAL IV SCH (09:13)
[2018-07-19] MEDS: TAMSULOSIN HCL 0.4 MG CAP PO SCH (09:13)
[2018-07-19] MEDS ORDERED: Calcium Carbonate PO (09:32)
[2018-07-19] MEDS ORDERED: LACTULOSE20 GM/30 M PO (09:32)
[2018-07-19] MEDS ORDERED: XIFAXAN550 MG PO (09:32)
--- NOTE | 2018-07-19 09:33 | Progress Note ---
DATE: July 19, 2018 The patient was seen and examined today. The patient appeared comfortable. No worsening events noted. PHYSICAL EXAM GENERAL: The patient is alert, awake and communicative. HEENT: Normocephalic and atraumatic. Sclerae pink. Conjunctivae clear. NECK: Supple. CHEST: Decreased breath sounds at the bases. CARDIOVASCULAR: Regular rate and rhythm. ABDOMEN: Soft. EXTREMITIES: No edema. LABS AND IMAGING: Reviewed. ASSESSMENT AND PLAN: The patient with a history of pancytopenia. Workup consistent with portal hypertension and also poor production of thrombopoietin from liver. Myelodysplastic workup is pending. Clinically doing better. Counts are stable. Continue current care. Anemia. Current hemoglobin improved. Required transfusion. RECOMMENDATIONS: Procrit treatment. Continue as an outpatient. Coagulopathy. On vitamin K. Will continue remaining care. Will follow the patient. Job#: [id number] IN
[2018-07-19] MEDS: EPOETIN ALFA 10000 UNIT/ML VIAL SC SCH (10:37)
--- NOTE | 2018-07-19 11:18 | Discharge Summary ---
ADMITTING DIAGNOSES 1. Confusion. 2. Hepatic encephalopathy. 3. Cirrhosis. 4. Hypothyroidism. 5. BPH. 6. Thrombocytopenia. 7. Anemia. 8. Hypocalcemia. 9. Hypokalemia. 10. Nausea. 11. Chronic kidney disease, stage 5. DISCHARGE DIAGNOSES 1. Confusion. 2. Hepatic encephalopathy. 3. Cirrhosis. 4. Hypothyroidism. 5. BPH. 6. Thrombocytopenia. 7. Anemia. 8. Hypocalcemia. 9. Hypokalemia. 10. Nausea. 11. Chronic kidney disease, stage 5. 12. Rule out Clostridium difficile plus gastrointestinal bleed. 13. Hyperammonemia. 14. Rule out urinary tract infection. HISTORY: The patient has a history of CKD 5, cirrhosis, type-2 diabetes, hypertension, hypothyroidism, BPH. Surgical history of left forearm AV fistula placement. No significant family history. Social history includes quitting alcohol and tobacco over 20 years ago. No illicit drug use. HOSPITAL COURSE: This 83-year-old male complained of some confusion that began Sunday night. He denied fall, dizziness and fever. Sunday around lunch, he became nauseous and threw up 2 times. He denies abdominal pain and diarrhea. At the time of assessment, the patient was oriented times 4 and tolerated lunch with no nausea. The patient had carotid Doppler that was negative. EKG showed sinus rhythm with 1st-degree AV block. Chest x-ray showed left upper lobe linear atelectasis/scarring. CT of the brain showed no acute abnormalities. Ultrasound of the abdomen showed cirrhotic changes of the liver with signs of portal hypertension and cholelithiasis without evidence of cholecystitis. Unchanged, mildly hypoechoic, 2.3 cm, right hepatic lobe lesion. The patient and son were instructed to follow up in [address] scan. Nephrology was consulted, who did not want to start dialysis. Hematology was consulted for pancytopenia. The patient was found to have a GI bleed and was transfused 2 units PRBCs on 07/17/2018. Subsequent hemoglobin was stable. Blood cultures were negative x72 hours. Urine culture was negative. Ammonia on admission was 125. On discharge ammonia was 56. Lactulose dosing frequency had to be increased, and Xifaxan was started. Vital signs were stable. Patient was afebrile. Patient will discharge home today with family. The patient and son understand discharge instructions and agree to plan. He will follow up with Dr. Merszei as discussed as well as GI in 2 weeks. He will follow up with primary care in 1 to 2 weeks as well. Vital signs are stable. Patient is afebrile. Dictated by: Ml Escobar NP MARLEN SERRANO MD Job#: [id number]
[2018-07-19] MEDS ORDERED: FAMOTIDINE 20 MG TAB PO SCH (16:30)
== END 2018-07-19 10:42 | disposition home health service (06) | DRG 433 ==
LOC: ER 15:45 → ERHOLD 21:16 → MED/SURG2 22:03
PROVIDERS: ADMIT Internal Medicine; ATTEND Internal Medicine
PROC: 30233N1 Transfusion of Nonautologous Red Blood Cells into Peripheral Vein, Percutaneous Approach (ICD-10-PCS; principal; 2018-07-17)
DX: K74.60 Unspecified cirrhosis of liver (principal); D61.818 Other pancytopenia; R18.8 Other ascites; D68.4 Acquired coagulation factor deficiency; N18.5 Chronic kidney disease, stage 5; I12.0 Hypertensive chronic kidney disease with stage 5 chronic kidney disease or end stage renal disease; E72.20 Disorder of urea cycle metabolism, unspecified; K92.2 Gastrointestinal hemorrhage, unspecified; E11.22 Type 2 diabetes mellitus with diabetic chronic kidney disease; N40.0 Benign prostatic hyperplasia without lower urinary tract symptoms; R41.0 Disorientation, unspecified; E03.9 Hypothyroidism, unspecified; R16.1 Splenomegaly, not elsewhere classified; R16.0 Hepatomegaly, not elsewhere classified; K72.90 Hepatic failure, unspecified without coma; D63.1 Anemia in chronic kidney disease; F10.21 Alcohol dependence, in remission; Z87.891 Personal history of nicotine dependence; I44.0 Atrioventricular block, first degree; E83.51 Hypocalcemia; K80.20 Calculus of gallbladder without cholecystitis without obstruction
CPT/HCPCS: 36415; 36430; 70450; 71045; 76700; 80048; 80053; 80076; 81001; 82140; 82150; 82270; 82550; 82553; 82607; 82728; 82746; 82948; 83540; 83605; 83690; 83735; 83880; 84439; 84443; 84466; 84484; 85025; 85610; 85730; 86850; 86900; 86920; 87040; 87086; 87493; 93005; 93880; 99284; J1100; J1200; J1940; J3430; J7050; P9016; Q4081